=== PATIENT | female | born 1980 | race Caucasian/White ===

== ENCOUNTER → 2016-03-28 | Outpatient (CLI) | payer OTHER ==
[~2016-03-28] MED LIST: DCS100C PO; DOCU100C37 PO; HYDR-3720 PO; IBP800T PO; IBUP-1780 PO; Ibuprofen PO; LEVO50TA6 PO; MTF500T PO; OXYC-202 PO; OXYC-465 PO; PREN-46 PO
[2016-03-28 10:09] LABS: MEAN PLATELET VOLUME 10.6 FL (7.4-10.4); RED BLOOD COUNT 5.01 10^6/uL (4.35-5.85); RED CELL DISTRIBUTION WIDTH 12.2 % (10.0-14.5); WHITE BLOOD COUNT 4.7 10^3/uL (4.3-11.0)
[2016-03-28 10:28] LABS: ALANINE AMINOTRANSFERASE 17 U/L (0-55); ALBUMIN 4.5 G/DL (3.2-4.5); ANION GAP 13 MMOL/L (5-14); ASPARTATE AMINO TRANSFERASE 17 U/L (5-34); BILIRUBIN,TOTAL 0.4 MG/DL (0.1-1.0); BLOOD UREA NITROGEN 18 MG/DL (7-18); BUN/CREATININE RATIO 20; CALCIUM 9.5 MG/DL (8.5-10.1); CARBON DIOXIDE 21 MMOL/L (21-32); CHLORIDE 107 MMOL/L (98-107); CREATININE SERUM 0.88 MG/DL (0.60-1.30); GFR ESTIMATED > 60; GLUCOSE 83 MG/DL (70-105); POTASSIUM 4.3 MMOL/L (3.6-5.0); SODIUM 141 MMOL/L (135-145); TOTAL PROTEIN 7.5 G/DL (6.4-8.2)
--- NOTE | 2016-03-28 14:12 | Diagnostic Imaging Report ---
Ultrasound of the spleen. INDICATION: History of mononucleosis. Evaluate spleen size. FINDINGS: The spleen is 11 x 4.7 x 5.1 cm, normal in size. No focal lesion seen. The color Doppler at the splenic hilum demonstrates normal-appearing splenic vessels. IMPRESSION: Normal size of the spleen. Dictated by: Dictated on workstation # [id number]
== END ==
LOC: RAD 09:01
PROVIDERS: ATTEND Obstetrics & Gynecology
DX: R16.1 Splenomegaly, not elsewhere classified (principal); B27.90 Infectious mononucleosis, unspecified without complication
CPT/HCPCS: 36415; 76705; 80053; 85027

== ENCOUNTER 2016-04-01 12:30 | Outpatient (CLI) | payer OTHER ==
[~2016-04-01] VITALS: Ht 152.4 cm; Wt 83.9 kg
[~2016-04-01 12:30] MED LIST changes: -DOCU100C37 PO; -IBUP-1780 PO; -OXYC-465 PO
[2016-04-01 12:39] VITALS: BP 121/82
== END 2016-04-01 12:50 | disposition home or self-care (01) ==
LOC: PREOP 12:30
PROVIDERS: ATTEND Obstetrics & Gynecology
DX: Z01.818 Encounter for other preprocedural examination (principal); Z11.2 Encounter for screening for other bacterial diseases; N93.8 Other specified abnormal uterine and vaginal bleeding; R10.2 Pelvic and perineal pain; N39.3 Stress incontinence (female) (male); D64.9 Anemia, unspecified
CPT/HCPCS: 87081

== ENCOUNTER 2016-04-05 10:05 | Day surgery (SDC) | payer OTHER ==
[~2016-04-05] VITALS: Ht 152.4 cm; Wt 83.9 kg
--- OUTSIDE RECORDS SUMMARY | 2016-04-05 10:10 | XMS REPORT | Continuity of Care Document ---
Author Author [facility] Organization [facility] Address Unknown Phone Unavailable Care Team Providers Care Supply Chain Business Analyst Name Role Phone NO, LOCAL PHYSICIAN PCP Unavailable Insurance Providers Payer Name Policy Number Subscriber Name Relationship Enter Insurance Name [id number] Jessy Manuel 19 Self / Same As Patient Advance Directives Directive Response Recorded Date/Time Advance Directives No 04/01/16 12:40pm Health Care Power of Fire Technician No 04/01/16 12:40pm Organ Donor Yes 04/01/16 12:40pm Resuscitation Status Full Code 04/01/16 12:40pm Problems Active Problems Medical Problem Onset Date Status Right ankle sprain Unknown Acute Right ankle sprain Unknown Acute Medications Current Home Medications Medication Dose Units Route Directions Days/Qty Instructions Start Date Levothyroxine Sodium 50 Mcg 50 Mcg Oral Daily 12/07/15 Past Home Medications Medication Directions Ordered Status Metformin Hcl (Glucophage) 500 Mg Tablet, 1 Each Oral Twice A Day With Meals 11/30/13 Discontinued Vit/Fe Fumarate/Fa 1 Each Tablet, 1 Each Oral Daily 11/30/13 Discontinued [Ibuprofen] 800 Mg Tab, 800 Mg Oral Every 6 Hours 12/02/13 Discontinued Docusate Sodium 100 Mg Capsule, 1 Cap Oral Twice A Day for Constipation 12/02 Discontinued Acetaminophen/Hydrocodone Bitart ([place]) 1 Each Tablet, 1-2 Tab Oral Every 4HRS as needed for Pain 12/02/13 Discontinued Ibuprofen 800 Mg Tab, 800 Mg Oral Every 6 Hours for Pain 06/22/14 Discontinued Oxycodone Hcl/Acetaminophen 1 Each Tablet, 1-2 Tab Oral Every 4HRS as needed for Pain 12/08/15 Discontinued Social History Social History Problem Response Recorded Date/Time Alcohol Use Denies Use 06/22/2014 2:15am Recreational Drug Use No 06/22/2014 2:15am Recent Foreign Travel No 04/01/2016 12:38pm Recent Infectious Disease Exposure No 04/01/2016 12:38pm Hospitalization with Isolation Denies 11/30/2013 8:18am Sexually Transmitted Disease No 04/01/2016 12:40pm HIV/AIDS No 04/01/2016 12:40pm Smoking Status Never a Smoker 04/01/2016 12:40pm Recent Hopitalizations No 04/01/2016 12:40pm Sexually Transmitted Disease No 04/01/2016 12:40pm Hospitalization with Isolation Denies 11/30/2013 8:18am Query Response Start Date Stop Date Smoking Status Never a Smoker Hospital Discharge Instructions No hospital discharge instructions. Plan of Care Discharge Date 04/01/16 12:50pm Prescriptions See Medication Section Functional Status No functional status results. Allergies, Adverse Reactions, Alerts Allergen Type Severity Reaction Status Last Updated Iodinated Contrast Media - Oral and Allergy Unknown RASH Active 04/01/16 metronidazole ([id number]) Allergy Unknown Active 11/30/13 Immunizations No immunization records. Vital Signs Acute Vital Signs Vital Response Date/Time Pulse Rate (adult) 69 bpm (60 - 90) 04/01/2016 12:39pm O2 Sat by Pulse Oximetry 99 % (88 - 100) 04/01/2016 12:39pm Blood Pressure 121/82 mm Hg 04/01/2016 12:39pm Blood Pressure Mean 95 mm Hg 04/01/2016 12:39pm Pain Numeric Pain Scale 4 04/01/2016 12:39pm Height (Feet) 5 feet 04/01/2016 12:38pm Height (Inches) 0.00 inches 04/01/2016 12:38pm Height (Calculated Centimeters) 152.457874 cm 04/01/2016 12:38pm Weight (Pounds) 185 pounds 04/01/2016 12:38pm Weight (Ounces) 0.0 oz 04/01/2016 12:38pm Weight (Calculated Grams) 27039.59 gm 04/01/2016 12:38pm Weight (Calculated Kilograms) 83.287865 kilograms 04/01/2016 12:38pm Calculated BMI 36.1 04/01/2016 12:38pm Results Pending Laboratory Results Test Name Collection Date/Time Procedures No known history of procedures. Encounters Encounter Location Arrival/Admit Date Discharge/Depart Date Attending Provider Departed Clinic [facility] 04/01/16 12:30pm 04/01/16 12: 50pm NATALIE ONEAL MD Registered Clinic [facility] 03/28/16 9:01am NATALIE ONEAL MD
--- OUTSIDE RECORDS SUMMARY | 2016-04-05 10:12 | XMS REPORT | Continuity of Care Document ---
Author Author [facility] Organization [facility] Address Unknown Phone Unavailable Care Team Providers Care Cardiac Cath Lab Radiology Technologist Name Role Phone NO, LOCAL PHYSICIAN PCP Unavailable Insurance Providers Payer Name Policy Number Subscriber Name Relationship Enter Insurance Name [id number] Jessy Manuel 19 Self / Same As Patient Advance Directives Directive Response Recorded Date/Time Advance Directives No 04/01/16 12:40pm Health Care Power of Design Technology Professor No 04/01/16 12:40pm Organ Donor Yes 04/01/16 [...] Day for Constipation 12/02 Discontinued Acetaminophen/Hydrocodone Bitart ([place]) 1 Each Tablet, 1-2 Tab Oral Every [...] and Allergy Unknown RASH Active 04/01/16 metronidazole ([id number]) Allergy Unknown Active 11/30/13 Immunizations No immunization [...] 0.00 inches 04/01/2016 12:38pm Height (Calculated Centimeters) 152.482404 cm 04/01/2016 12:38pm Weight (Pounds) 185 pounds 04/01/2016 12:38pm Weight (Ounces) 0.0 oz 04/01/2016 12:38pm Weight (Calculated Grams) 71544.59 gm 04/01/2016 12:38pm Weight (Calculated Kilograms) 83.162705 kilograms 04/01/2016 12:38pm Calculated BMI 36.1 04/01/2016 12:38pm Results Pending Laboratory Results Test Name Collection Date/Time Procedures No known history of procedures. Encounters Encounter Location Arrival/Admit Date Discharge/Depart Date Attending Provider Departed Clinic [facility] 04/01/16 12:30pm 04/01/16 12: 50pm NATALIE ONEAL MD Registered Clinic [facility] 03/28/16 9:01am NATALIE ONEAL MD
[2016-04-05] MEDS ORDERED: ceFAZolin 1 GM/NS 50 ML IVPB IV ONE ×2 (10:15)
[2016-04-05 10:27] VITALS: BP 108/84
[2016-04-05] MEDS ORDERED: ONDANSETRON 4 MG/2 ML (SDV) Z0FRAN ONE ×2 (10:46→12:03)
[2016-04-05] MEDS ORDERED: SCOPOLAMINE 1.5 MG (TRANSDERM-SCOP) PATCH ONE (10:46)
[2016-04-05] MEDS ORDERED: FAMOTIDINE 20MG/2ML IV (PEPCID) ONE (10:46)
[2016-04-05] MEDS: LACTATED RINGERS 1,000 ML IV PRN ×2 (10:54→13:45)
[2016-04-05] MEDS ORDERED: FAMOTIDINE 20MG/2ML IV (PEPCID) IV ONE (11:00)
[2016-04-05] MEDS ORDERED: SCOPOLAMINE 1.5 MG (TRANSDERM-SCOP) PATCH TOP ONE (11:00)
[2016-04-05] MEDS ORDERED: ONDANSETRON 4 MG/2 ML (SDV) Z0FRAN IV ONE ×2 (11:00→15:30)
[2016-04-05] MEDS ORDERED: SEVOFLURANE (ULTANE) 15 ML INHAL SOLN ONE ×4 (12:03→15:03)
[2016-04-05] MEDS ORDERED: LIDOCAINE PF 2% 10 ML (XYLOCAINE) AMP ONE (12:03)
[2016-04-05] MEDS ORDERED: LACTATED RINGERS 1,000 ML IV ONE ×2 (12:03→14:45)
[2016-04-05] MEDS ORDERED: proPOfol 200 MG/20 ML (DIPRIVAN) VIAL IV ONE (12:03)
[2016-04-05] MEDS ORDERED: DEXAMETHASONE PF 10 MG/ML (DECADRON) VIAL ONE (12:03)
[2016-04-05] MEDS ORDERED: ROCURONIUM 50 MG/5 ML (ZEMURON) VIAL IV ONE (12:03)
[2016-04-05] MEDS ORDERED: fentaNYL INJECTION 250 MCG/5 ML AMP ONE (12:04)
[2016-04-05] MEDS ORDERED: MIDAZOLAM 2 MG/2 ML (VERSED) VIAL ONE (12:04)
[2016-04-05] MEDS ORDERED: BUP/EPI 0.25% 1:200,000 (MARCAINE) 30 ML VIAL ONE (12:19)
[2016-04-05] MEDS ORDERED: ESTRADIOL VAGINAL CREAM 42.5 GM (ESTRACE) VG ONE (12:28)
--- NOTE | 2016-04-05 13:13 | Progress Note-Pre Operative ---
Pre-Operative Progress Note H&P Reviewed The H&P was reviewed, patient examined and no changes noted. Date H&P Reviewed: Apr 05, 2016 Time H&P Reviewed: 13:13 Pre-Operative Diagnosis: DUB/CPP/menorrhagia/uterine prolapse/ZULLY NATALIE ONEAL MD Apr 05, 2016 1:13 pm
[2016-04-05] MEDS ORDERED: WATER (STERILE) FOR INJ 10 ML BTL INJ ONE (13:15)
[2016-04-05] MEDS ORDERED: ESTROGENS CONJ IV 25 MG/5 ML (PREMARIN) VIAL IVP ONE (13:15)
[2016-04-05] MEDS ORDERED: PROMETHAZINE INJ 25 MG/ML (PHENERGAN) AMP IM PRN (13:15)
[2016-04-05] MEDS ORDERED: MEPERIDINE (DEMEROL) INJ 100 MG/ML IM PRN (13:15)
[2016-04-05] MEDS ORDERED: BENZOCAINE/MENTHOL (DERMOPLAST) 56 ML CAN TP PRN (13:15)
[2016-04-05] MEDS ORDERED: ONDANSETRON 4 MG/2 ML (SDV) Z0FRAN IVP PRN (13:15)
--- NOTE | 2016-04-05 13:37 | Progress Note-Post Operative ---
Post-Operative Progess Note Pre-Operative Diagnosis ZULLY Post-Operative Diagnosis SAME Post-Op Procedure Note Date of Procedure: Apr 05, 2016 Name of Procedure: PVS AND CYSTOSCOPY Anesthesia Type GENERAL Estimated blood loss (mL): ELIA Kerns MD Apr 05, 2016 1:37 pm
[2016-04-05] MEDS ORDERED: GLYCOPYRROLATE 0.2 MG/ML (ROBINUL) 2 ML VIAL ONE (14:46)
[2016-04-05] MEDS ORDERED: NEOSTIGMINE (BLOXIVERZ ) 1 MG/1ML 10 ML VIAL ONE (14:46)
[2016-04-05] MEDS ORDERED: HYDROmorphone (DILAUDID) 2 MG/ML VIAL ONE (14:52)
[2016-04-05] MEDS ORDERED: morphine INJ 10 MG/ML 1ML (SYR OR VIAL) ONE (14:53)
[2016-04-05] MEDS ORDERED: WATER (STERILE) FOR INJECTION 10 ML ONE (14:53)
[2016-04-05] MEDS ORDERED: ESTROGENS CONJ IV 25 MG/5 ML (PREMARIN) VIAL ONE (14:53)
[2016-04-05] MEDS: KETOROLAC 30 MG/ML VIAL IVP SCH ×2 (15:15→21:40)
[2016-04-05] MEDS ORDERED: fentaNYL INJECTION 100 MCG/2 ML AMP IV PRN (15:30)
[2016-04-05] MEDS: morphine INJ 10 MG/ML 1ML (SYR OR VIAL) IV PRN ×3 (15:45→16:00)
[2016-04-05 16:30] VITALS: BP 132/83
[2016-04-05] MEDS: D5 LR IV SOLUTION 1,000 ML IV SCH (17:20)
[2016-04-05] MEDS: oxyCODONE/APAP 10/325MG (PERCOCET 10) TABLET PO PRN (18:27)
[2016-04-05 19:50] VITALS: BP 119/79
--- NOTE | 2016-04-05 22:51 | OPERATIVE REPORT ---
PROCEDURE PHYSICIAN: ELIA CHAIDEZ DATE OF PROCEDURE: PREOPERATIVE DIAGNOSIS (ON MY PART): Urinary incontinence. POSTOPERATIVE DIAGNOSIS: Urinary incontinence. OPERATION: Pubovaginal sling and cystoscopy. SURGEON: Dr. Chaidez. ANESTHESIA: General. COMPLICATIONS: None. PRIVATE BANKER: Dr. Paulino. PROCEDURE: After Dr. Paulino performed the first part of his surgery that he will dictate, we inserted a Fernandez catheter draining clear urine. I passed Solyx device to pass the pubovaginal sling on both sides using the described technique. The sling was holding well on both sides; however, it was kind of redundant a little bit so I passed it again on her right side in a better tight position. The sling was lying nicely under the mid urethra with no twisting, no tension and passage of a curved hemostat easily between it and the underlying tissue. I remove the Fernandez catheter, performed the cystoscopy to confirm the integrity of the bladder, ureteral orifices, urethra and no foreign body and presence of the sling at the mid urethra. I removed the cystoscope, performed Valsalva maneuver manually and it was negative. I reinserted the Fernandez catheter draining clear fluid. Estimated blood loss on my part, negligible and Dr. Paulino proceeded with the rest of his surgery that he will dictate. Job ID: [id number] Dictated Date: 04/05/2016 14:57:51 Contract Programmer Date: 04/05/2016 22:37:50 / liliana
[2016-04-05 23:55] VITALS: BP 97/56
[2016-04-06] MEDS: D5 LR IV SOLUTION 1,000 ML IV SCH (01:05)
[2016-04-06] MEDS: KETOROLAC 30 MG/ML VIAL IVP SCH (04:27)
[2016-04-06 04:30] VITALS: BP 108/58
[2016-04-06 08:40] VITALS: BP 109/76
[2016-04-06] MEDS: oxyCODONE/APAP 10/325MG (PERCOCET 10) TABLET PO PRN (08:49)
[2016-04-06] MEDS ORDERED: DOCUSATE SODIUM 100 MG (COLACE) CAP PO SCH (09:00)
[2016-04-06] MEDS ORDERED: OXYC-465 PO (09:01)
[2016-04-06] MEDS ORDERED: DOCU100C37 PO (09:01)
[2016-04-06] MEDS ORDERED: IBUP-1780 PO (09:01)
--- NOTE | 2016-04-06 09:03 | Discharge Instructions ---
Discharge Instructions Discharge Medications New, Converted or Re-Newed RX: RX on Chart Patient Instructions Patient Instructions: as directed Return to The Hospital For: as directed Activity & Diet Discharge Diet: No Restrictions Activity as Tolerated: No Orders-Post D/C & Referrals Follow Up Appt: return to clinic on Friday, April 10, 2016 at 930 a.m. for staple removal Call to make follow up appt. for patient in 4 weeks. return to clinic with Dr. Barrera per his instructions Activity: Rest for 24 hours, than as tolerated. Wound Care: May remove Band-Aid tomorrow. Replace as desired. Keep incisions clean and dry. Wash daily with soap and water. Please call in RX to patient pharmacy. Diet: As tolerated-Clear Liquids only if nauseated. Tomorrow, may shower or tub bathe as desired. No driving for 24 hours, no alcoholic beverages for 24 hours, and nothing per vagina (no tampons, douching, or intercourse) for 8 weeks. Patient to return to the clinic as soon as possible for: Temperature greater than 101F, Severe Pain, Foul discharge from incision or vagina, Excessive Bleeding (more than a period). NATALIE ONEAL MD Apr 06, 2016 9:03 am
--- NOTE | 2016-04-06 09:05 | Progress Note-Standard ---
Standard Progress Note Progress Notes/Assess & Plan Progress/Assessment & Plan this patient is without complaint. She is ambulating, tolerating by mouth well , she has good pain control. She has not voided as of yet. Vital Signs Date Time Temp Pulse Resp B/P Pulse Ox O2 Delivery O2 Flow Rate FiO2 04/06/16 04:30 98.4 92 18 108/58 98 Room Air 04/05/16 23:55 99.4 98 18 97/56 99 Room Air 04/05/16 19:50 98.9 80 18 119/79 100 Room Air 04/05/16 19:50 98.9 80 18 119/79 100 Room Air 04/05/16 16:30 97.8 93 18 132/83 95 Room Air 04/05/16 10:27 98.8 104 16 108/84 99 Room Air I & O 04/06/16 07:00 Intake Total 4365 ml Output Total 3665 ml Balance 700 ml Vital signs are stable. Patient is afebrile. Abdomen is benign. Extremities show no clubbing or cyanosis. There is no Homans sign. Assessment and plan postoperative day number 1doing well. Plan is for discharge home with follow-up in clinic. Final Diagnosis DUB/ZULLY/menorrhagia/pelvic relaxation NATALIE ONEAL MD Apr 06, 2016 9:05 am
[2016-04-06] MEDS ORDERED: IBUPROFEN 800 MG (MOTRIN) TAB PO ONE (10:02)
--- NOTE | 2016-04-06 12:36 | Anesthesia-General Post-Op ---
General Patient Condition Mental Status/LOC: Same as Preop Cardiovascular: Satisfactory Nausea/Vomiting: Absent Respiratory: Satisfactory Pain: Controlled Complications: Absent Post Op Complications Complications None Follow Up Care/Instructions Patient Instructions None needed. Anesthesia/Patient Condition Patient Condition Patient is doing well, no complaints, stable vital signs, no apparent adverse anesthesia problems. No complications reported per nursing. KE GAXIOLA CRNA Apr 06, 2016 12:36
[2016-04-06] MEDS ORDERED: IBUPROFEN 800 MG (MOTRIN) TAB PO SCH (18:00)
--- NOTE | 2016-04-08 03:46 | OPERATIVE REPORT ---
PROCEDURE PHYSICIAN: NATALIE ONEAL DATE OF PROCEDURE: 04/05/2016 DATE OF DICTATION: 04/05/2016 PREOPERATIVE DIAGNOSIS: 1. Dysfunctional uterine bleeding. 2. Chronic pelvic pain. 3. Stress urinary incontinence. 4. Uterine prolapse. POSTOPERATIVE DIAGNOSES: 1. Dysfunctional uterine bleeding. 2. Chronic pelvic pain. 3. Stress urinary incontinence. 4. Uterine prolapse. 5. Endometriosis. OPERATIVE PROCEDURE: Total laparoscopic hysterectomy with bilateral salpingectomy, left oophorectomy. Destruction of endometriosis as well as anterior and posterior vaginal repairs with enterocele repair and with Dr. Hammond performing a pubovaginal sling and cystoscopy. OPERATIVE DESCRIPTION: With the patient in supine position, under satisfactory general anesthesia, she was repositioned in dorsal lithotomy position in the [facility] and prepped and draped in usual fashion for abdominal and vaginal surgery using robotic assistance. A weighted speculum was placed in the posterior fornix of the vagina. Cervix exposed and grasped anteriorly with single-tooth tenaculum. The uterus was sounded to 13 cm of uterine sound. The cervix was then serially dilated with Andrés dilators to accommodate a uterine manipulator, which was placed and the bulb filled with 4 mL of water. The uterine manipulator using a 6 mm x 8 cm uterine probe and a 35 mm colpotomy ring. Sutures of number 1 Vicryl were placed at 3 and 9 o'clock positions of the cervix and affixed the manipulator as well. A Fernandez cath were placed in the urinary bladder and patient brought into low dorsal lithotomy position. A 12 mm incision made 4 cm superior to the umbilicus. 8 mm incisions were made 9 cm lateral to the umbilicus on each side. All 3 incision sites were infiltrated 0.25% Marcaine with epinephrine prior to incision. The supraumbilical incision was Veress needle placed through it into the abdominal cavity, correct placement was confirmed with the water drop test. The abdomen was insufflated with 2.4 liters of carbon dioxide then the Veress needle was removed and a 12 mm Optiview laparoscopic port placed. After the port was placed, the laparoscope was introduced. The abdominal wall transilluminated and 8 mm ports were placed in the 2 incisions right and left lateral. The patient was placed in Trendelenburg, allowing the bowel was spilled up out of the pelvis. The da Tara column was then advanced onto the patient and docked and operative instruments were placed in the right and left lateral ports and I retired to the da Tara console for the hysterectomy. At the console, using the vessel sealer on the right and bipolar fenestrated grasper on the left, the pelvis was first examined. There was endometriosis in the left ovarian fossae and low on the right uterosacral ligament. There were endometriosis implants that appeared to be on the left ovary. Both fallopian tubes showed evidence of tubal sterilization. The uterus was mottled in appearance consistent with adenomyosis. The laparoscope was rotated. The appendix was seen. It was a normal vermiform appendix and was well out of the pelvis. The decision was made to go ahead with the right and left salpingectomy, left oophorectomy in conjunction with the hysterectomy. Right fallopian tube was grasped and elevated. The vessel sealer was used on the mesosalpinx clamping, cauterizing and dividing stepwise across to the side of the uterus. The utero-ovarian pedicle was then treated in the same manner as was the round ligament, the broad ligament and cardinal ligaments. The same procedure was performed on the left, except that the left ovary was removed by starting stepwise across the mesovarian. The anterior lower uterine segment peritoneum was then divided using monopolar [place] in place with the vessel sealer. The bladder was dissected down off the cervix and then colpotomy incision was made at the 12 o'clock position and then continued circumferentially until the entire colpotomy ring was exposed. The uterus with the tubes and the left ovary still attached, was removed through the vagina. The vaginal cuff was then closed with running suture of V-LOC sacah suture starting from the right angle and continuing to the midportion of the cuff, insuring inclusion of the uterine vessels the right. The same was performed starting from the left with a second suture. The bladder was brought back down on the vaginal cuff with the last couple stitches. Good hemostasis was achieved. There were a couple endometriosis implants remaining in the pelvis. These were touched with electrocautery using the monopolar shear. With the endometriosis implants destroyed, with no further pathology with no bleeding, the procedure was terminated. The pelvis was copiously irrigated and examined for hemostasis. With that being complete, the procedure was terminated. The operative instruments were removed under direct vision as were the ports. The abdomen was evacuated of the insufflating gas in the process of removing the port. The skin incisions were closed with giuliana after first closing the fascia at the supraumbilical incision with [id number] suture of 2-0 Vicryl. The patient was now repositioned in the dorsal lithotomy position for anterior and posterior repairs as well as pubovaginal sling and cystoscopy. Edmond clamps were placed on the anterior vaginal wall. The vaginal wall was opened in the midline with Metzenbaum scissors. The opening was continued to approximately a centimeter and a half from the urethral meatus and up to almost apex of the vagina. The bladder was carefully dissected off the muscularis of the vagina back to pubic rami bilaterally. The bladder wall was then plicated with 2-0 Vicryl suture elevating the bladder and lengthening the urethra. At this point, Dr. Hammond assumed care of the patient I remained to assist. Dr. Hammond performed his pubovaginal sling and cystoscopy and then I resumed care of the patient. The redundant anterior vaginal wall muscularis mucosa was removed sharply. The vaginal wall was closed with running locked suture of 3-0 Vicryl Rapide. Posterior repair was then performed by placing Edmond clamps on the perineum and hymenal ring at 5 and 7 o'clock positions. An inverted triangle of skin was removed from the perineal body and an upright triangle from the posterior vaginal floor. The rectovaginal space was entered sharply and dissected bluntly to the apex of the vagina. There was a small enterocele that was reduced and then plicated with 2-0 Vicryl suture in a pursestring manner. With the enterocele obliterated, the rectovaginal space was now obliterated with additional sutures of 2-0 Vicryl and then the perineal body was restored with sutures of 2-0 Vicryl as well. Redundant posterior vaginal wall muscularis mucosa was removed sharply. The vaginal wall was closed with running suture of 3-0 Vicryl. That closure was continued past the hymenal ring down on perineal body then back up subcutaneous to the hymenal ring where the suture was tied. Digital rectal exam confirmed no stricture or stenosis of the rectum, no sutures into or through the rectal mucosa. The vagina was now filled with Estrace vaginal cream and a pack of Kerlix gauze was placed. Fernandez cath was left to dependent drainage. Sponge and needle counts were correct at the end of procedure. Estimated blood loss for procedure around 150 mL. The patient tolerated the procedure well, and was uneventfully awakened from her general anesthesia and transferred to recovery room in stable condition. Job ID: [id number] Dictated Date: 04/05/2016 15:22:43 Buckle Attaching Machine Operator Date: 04/08/2016 03:25:56 / liliana
== END 2016-04-06 12:20 | disposition home or self-care (01) ==
LOC: SDC 10:05 → WS 16:36 → SDC 04-06 12:20
PROVIDERS: ATTEND Obstetrics & Gynecology
DX: R10.2 Pelvic and perineal pain (principal); N39.3 Stress incontinence (female) (male); N93.8 Other specified abnormal uterine and vaginal bleeding; N80.1 Endometriosis of ovary; N80.3 Endometriosis of pelvic peritoneum; N81.4 Uterovaginal prolapse, unspecified; N83.8 Other noninflammatory disorders of ovary, fallopian tube and broad ligament; N83.202 Unspecified ovarian cyst, left side
CPT/HCPCS: 84703; 86850; 86900; 86901; 88307; 94664; 96361; 96375; 96376

== ENCOUNTER → 2016-09-02 | Outpatient (CLI) | payer OTHER ==
[~2016-09-02] MED LIST changes: +DOCU100C37 PO; +IBUP-1780 PO; +OXYC-465 PO
--- NOTE | 2016-09-02 09:11 | Diagnostic Imaging Report ---
PROCEDURE: US left lower extremity venous. TECHNIQUE: Multiple real-time grayscale images were obtained over the left lower extremity in various projections. Additional duplex Doppler and color Doppler images were also obtained. INDICATION: Left leg pain. EXAMINATION: Grayscale and color Doppler evaluation of the deep veins of the left lower extremity were performed with waveform analysis. FINDINGS: Continuous venous flow is present. No intraluminal filling defect is identified. There is normal compressibility and response to augmentation. No abnormal perivascular fluid collection is identified. IMPRESSION: No ultrasound evidence of left lower extremity deep venous thrombosis. Dictated by: Dictated on workstation # [id number]
== END ==
LOC: RAD 08:40
DX: R22.42 Localized swelling, mass and lump, left lower limb (principal); M79.662 Pain in left lower leg

== ENCOUNTER 2017-05-12 09:00 | Outpatient (CLI) | payer OTHER ==
[~2017-05-12] VITALS: Ht 152.4 cm; Wt 104.3 kg
[~2017-05-12 09:00] MED LIST changes: +ROPI0.25 PO
== END 2017-05-12 09:41 ==
LOC: PREOP 09:00
PROVIDERS: ATTEND Surgery
DX: Z01.818 Encounter for other preprocedural examination (principal); K43.2 Incisional hernia without obstruction or gangrene

== ENCOUNTER → 2017-05-15 | Day surgery (SDC) | payer OTHER ==
[~2017-05-15] VITALS: Ht 152.4 cm; Wt 104.3 kg
[~2017-05-15] MED LIST changes: +ACETAMINOPHEN 325 MG TABLET/CAPLET (TYLENOL) PO PRN; +BUP/EPI 0.5% 1:200,000 (SENSORCAINE) 30 ML VIAL ONE; +CATHETER FLUSH 10 ML SYR IV PRN; +DEXAMETHASONE 10 MG/ML (DECADRON) 1 ML VIAL ONE; +FAMOTIDINE 20MG/2ML IV (PEPCID) IVP ONE; +HYDR-34 PO; +HYDROcodone/APAP 5 MG/325 MG (LORTAB) TAB ONE; +HYDROcodone/APAP 5 MG/325 MG (LORTAB) TAB PO ONE; +LIDOCAINE PF 2% 5 ML (XYLOCAINE) VIAL ONE; +MEPERIDINE (DEMEROL) INJ 50 MG/ML IVP PRN; +MIDAZOLAM 2 MG/2 ML (VERSED) VIAL ONE; +NEO/POLY/BAC (NEOSPORIN) OINT 15 GM TUBE ONE; +ONDANSETRON 4 MG/2 ML (SDV) Z0FRAN IVP ONE; +ONDANSETRON 4 MG/2 ML (SDV) Z0FRAN IVP PRN; +ONDANSETRON 4 MG/2 ML (SDV) Z0FRAN ONE; +ROCURONIUM 10 MG/ML 5 ML SYRINGE IV ONE; +SCOPOLAMINE 1.5 MG (TRANSDERM-SCOP) PATCH TD ONE; +SEVOFLURANE (ULTANE) 15 ML INHAL SOLN ONE; +ceFAZolin INJECTION 1,000 MG in NS (IVPB) 100 ML IV ONE; +fentaNYL INJECTION 100 MCG/2 ML AMP IVP PRN; +fentaNYL INJECTION 100 MCG/2 ML AMP ONE; +morphine INJ 10 MG/ML 1ML (SYR OR VIAL) IVP PRN; +proPOfol 200 MG/20 ML (DIPRIVAN) VIAL IV ONE
--- OUTSIDE RECORDS SUMMARY | 2017-05-15 09:54 | XMS REPORT ---
Author RADHA Henriquez Organization [employer] Address Unknown Phone Unavailable Care Team Providers Care Rn Staffing Name Role Phone RADHA LÓPEZ CP Unavailable Allergies, Adverse Reactions, Alerts Substance Reaction Event Type Flagyl Info Not Available Drug Allergy IV Dye Info Not Available Non Drug Allergy Problems Problem Type Condition Code Onset Dates Condition Status Problem Obesity, Class III, BMI 40-49.9 (morbid obesity) E66.01 Active Assessment Depression F32.9 Active Problem Depression F32.9 Active Medications Medication Code System Code Instructions Start Date End Date Status Dosage Zoloft [facility] [address]-50 50 MG Orally Once a day Dec 27, 2014 1 tablet Procedures Procedure Coding System Code Date Office Visit, Est Pt., Level 3 CPT-4 51796 Jan 27, 2015 Vital Signs Date/Time: Jan 27, 2015 Temperature 97.7 F Weight 238.9 lbs Height 60 in BMI 46.65 Index Blood Pressure Diastolic 70 mmHg Blood Pressure Systolic 104 mmHg Cardiac Monitoring Heart Rate 72 bpm Results No Known Results Summary Purpose [employer] Submission
--- OUTSIDE RECORDS SUMMARY | 2017-05-15 09:54 | XMS REPORT ---
Author NOEMI Tse Organization [employer] Address Unknown Phone Unavailable Care Team Providers Care Machine Binder Stripper Name Role Phone NOEMI RICO CP Unavailable Allergies, Adverse Reactions, Alerts Substance Reaction Event Type Flagyl Info Not Available Drug Allergy IV Dye Info Not Available Non Drug Allergy Problems Problem Type Condition Code Onset Dates Condition Status Problem Obesity, Class III, BMI 40-49.9 (morbid obesity) E66.01 Active Assessment Dental examination Z01.20 Active Problem Depression F32.9 Active Medications No Known Medications Procedures Procedure Coding System Code Date INTRAORL-PERIAPICAL 1 FILM 04833 CPT-4 D0220 Feb 27, 2015 LTD ORAL EVALUATION - PROBLEM FOCUS CPT-4 D0140 Feb 27, 2015 Vital Signs Date/Time: Feb 27, 2015 Blood Pressure Diastolic 80 mmHg Blood Pressure Systolic 133 mmHg Height 60 in Results No Known Results Summary Purpose [employer] Submission
--- OUTSIDE RECORDS SUMMARY | 2017-05-15 09:54 | XMS REPORT ---
Author RADHA Henriquez [facility] [employer] Address Unknown Phone Unavailable Care Team Providers Care Restorer Paper And Prints Name Role Phone RADHA LÓPEZ CP Unavailable Allergies, Adverse Reactions, Alerts Substance Reaction Event Type Flagyl Info Not Available Drug Allergy IV Dye Info Not Available Non Drug Allergy Problems Problem Type Condition Code Onset Dates Condition Status Assessment Abdominal pain, left upper quadrant R10.12 Active Assessment depression F53 Active Problem Obesity, Class III, BMI 40-49.9 (morbid obesity) E66.01 Active Medications Medication Code System Code Instructions Start Date End Date Status Dosage Zoloft [facility] [address]-64 25 MG Orally Once a day Nov 18, 2014 1 tablet Procedures Procedure Coding System Code Date Office Visit, Est Pt., Level 3 CPT-4 05777 Nov 18, 2014 Vital Signs Date/Time: Nov 18, 2014 Temperature 98.4 F Weight 239.8 lbs Height 60 in BMI 46.83 Index Blood Pressure Diastolic 84 mmHg Blood Pressure Systolic 112 mmHg Cardiac Monitoring Heart Rate 80 bpm Results No Known Results Summary Purpose [employer] Submission
--- OUTSIDE RECORDS SUMMARY | 2017-05-15 09:54 | XMS REPORT ---
Author Author RADHA LÓPEZ [facility] Address [address] [place] [address] Care Team Providers Care Professional Athletes Coach Name Role Phone RADHA LÓPEZ Unavailable PROBLEMS Type Condition ICD9-CM Code QGL81-UB Code Onset Dates Condition Status SNOMED Code Problem Depression F32.9 Active 72887968 Problem Obesity, Class III, BMI 40-49.9 (morbid obesity) E66.01 Active 395652469 ALLERGIES No Information SOCIAL HISTORY Never Assessed PLAN OF CARE VITAL SIGNS MEDICATIONS Unknown Medications RESULTS No Results PROCEDURES No Known procedures IMMUNIZATIONS No Known Immunizations MEDICAL (GENERAL) HISTORY Type Description Date Medical History gestational diabetes Surgical History tonsillectomy 1991 Surgical History bladder suspension 2010 Surgical History tubal ligation 12/2013 Hospitalization History Kidney stones, [facility] 1996
--- OUTSIDE RECORDS SUMMARY | 2017-05-15 09:54 | XMS REPORT ---
Author MILLA Hutson [facility] eClinicalWorks Address Unknown Phone Unavailable Care Team Providers Care Hot Room Attendant Name Role Phone MILLA SANTOS Unavailable Allergies, Adverse Reactions, Alerts Substance Reaction Event Type Flagyl Info Not Available Drug Allergy IV Dye Info Not Available Non Drug Allergy Problems Problem Type Condition Code Onset Dates Condition Status Problem Obesity, Class III, BMI 40-49.9 (morbid obesity) E66.01 Active Assessment Dysuria R30.0 Active Problem Depression F32.9 Active Assessment Personal history of urinary (tract) infections Z87.440 Active Assessment Urinary tract infection N39.0 Active Medications Medication Code System Code Instructions Start Date End Date Status Dosage Cipro [facility] [address]-40 500 MG Orally Twice a day Apr 02, 2015 Apr 12, 2015 1 tablet Pyridium [facility] [address]-23 100 MG Orally Three times a day Apr 02, 2015 Apr 04, 2015 1 tablet after meals Procedures Procedure Coding System Code Date URINE CULTURE/COLONY COUNT CPT-4 41792 Apr 02, 2015 Office Visit, Est Pt., Level 3 CPT-4 17120 Apr 02, 2015 URINALYSIS, AUTO, W/O SCOPE CPT-4 66586 Apr 02, 2015 Vital Signs Date/Time: Apr 02, 2015 Temperature 98.0 F Weight 241.8 lbs Height 60 in BMI 47.22 Index Blood Pressure Diastolic 70 mmHg Blood Pressure Systolic 100 mmHg Cardiac Monitoring Heart Rate 120 bpm Results Name Result Date Reference Range Unit Abnormality Flag UA LONG DIP (IN HOUSE) ----ANTHONY 1+ 20150402 ----NIT negative 20150402 ----Exp date 20150402 ----Lot # [id number] ----SG 1.025 20150402 ----KET negative 20150402 ----KATHERINE negative 20150402 ----GLU negative 20150402 ----Odor strong 20150402 ----pH 5.5 20150402 ----BLO 2+ 20150402 ----URO 0.2 20150402 ----Protein trace 20150402 ----Lot # [id number] ----Exp date 20150402 ----Clarity cloudy 20150402 ----Color yellow 20150402 Summary Purpose eClinicalWorks Submission
--- OUTSIDE RECORDS SUMMARY | 2017-05-15 09:55 | XMS REPORT ---
Author ROXANA Pop [facility] eClinicalWorks Address Unknown Phone Unavailable Care Team Providers Care Box Worker Name Role Phone ROXANA MURRAY CP Unavailable Allergies No Known Allergies Problems Problem Type Condition Code Onset Dates Condition Status Problem Obesity, Class III, BMI 40-49.9 (morbid obesity) E66.01 Active Problem Depression F32.9 Active Medications No Known Medications Results No Known Results Summary Purpose eClinicalWorks Submission
--- OUTSIDE RECORDS SUMMARY | 2017-05-15 09:55 | XMS REPORT ---
Author RADHA Henriquez [facility] eClinicalWorks Address Unknown Phone Unavailable Care Team Providers Care Brush Cutter Name Role Phone RADHA LÓPEZ CP Unavailable [...] Instructions Start Date End Date Status Dosage Ibuprofen [facility] [address]-30 800 MG Orally Three times a day 1 tablet Zoloft [facility] [address]-50 50 MG Orally Once a day Dec 27, 2014 1 tablet Procedures Procedure Coding System Code Date Office Visit, Est Pt., Level 3 CPT-4 61651 Dec 27, 2014 Vital Signs Date/Time: Dec 27, 2014 Temperature 97.7 F Weight 240.9 lbs Height 60 in BMI 47.04 Index Blood Pressure Diastolic 88 mmHg Blood Pressure Systolic 120 mmHg Cardiac Monitoring Heart Rate 80 bpm Results No Known Results Summary Purpose eClinicalWorks Submission
--- NOTE | 2017-05-15 10:11 | Progress Note-Pre Operative ---
Pre-Operative Progress Note H&P Reviewed The H&P was reviewed, patient examined and no changes noted. Date Seen by Provider: May 15, 2017 Time Seen by Provider: 10:10 Date H&P Reviewed: May 15, 2017 Time H&P Reviewed: 10:10 Pre-Operative Diagnosis: ventral abdominal incisional hernia RAFAEL PANDEY MD May 15, 2017 10:10 am
[2017-05-15] MEDS: LACTATED RINGERS 1,000 ML IV PRN ×2 (10:15→13:25)
[2017-05-15 10:17] VITALS: BP 109/82
[2017-05-15 11:47] LABS: BASOPHILS % (AUTO) 1 % (0-10); EOSINOPHILS # (AUTO) 0.1 10^3/uL (0.0-0.3); EOSINOPHILS % (AUTO) 3 % (0-10); HEMATOCRIT 40 % (35-52); HEMOGLOBIN 13.7 G/DL (11.5-16.0); LYMPHOCYTES # (AUTO) 1.9 X 10^3 (1.0-4.0); LYMPHOCYTES % (AUTO) 34 % (12-44); MEAN CORPUSCULAR HEMOGLOBIN 31 PG (25-34); MEAN CORPUSCULAR HGB CONC 34 G/DL (32-36); MEAN CORPUSCULAR VOLUME 91 FL (80-99); MEAN PLATELET VOLUME 9.8 FL (7.4-10.4); MONOCYTES # (AUTO) 0.4 X 10^3 (0.0-1.0); MONOCYTES % (AUTO) 6 % (0-12); NEUTROPHILS # (AUTO) 3.2 X 10^3 (1.8-7.8); NEUTROPHILS % (AUTO) 57 % (42-75); PLATELET COUNT 326 10^3/uL (130-400); RED CELL DISTRIBUTION WIDTH 12.1 % (10.0-14.5); WHITE BLOOD COUNT 5.6 10^3/uL (4.3-11.0)
--- NOTE | 2017-05-15 14:31 | Progress Note-Post Operative ---
Post-Operative Progess Note Surgeon (s)/Land Survey Technician (s) Surgeon RAFAEL PANDEY MD Land Survey Technician: yeison ambrosio BOOTH CASHIER Pre-Operative Diagnosis ventral abdominal incisional hernia Post-Operative Diagnosis same, large lipoma(6x6cm). Procedure & Operative Findings Date of Procedure 05/15/17 Procedure Performed/Findings excision subcutaneous lipoma, open ventral abdominal incisional hernia repair with mesh. Anesthesia Type GET Estimated Blood Loss Estimated blood loss (mL): minimal Specimens/Packing Specimens Removed lipoma abdominal wall. RAFAEL PANDEY MD May 15, 2017 2:31 pm
--- NOTE | 2017-05-15 14:33 | Discharge Inst-Surgical ---
D/C Lap Instructions-DANNIE New, Converted, or Re-Newed RX: RX on Chart Follow Up Appt in 2 weeks Activity as tolerated No driving for 24 hours No driving while on pain medications Incentive Spirometry use every 2 hours while awake Regular Diet Symptoms to Report: Fever over 101 degree F, Nausea/Vomiting Infection Signs and Symptoms to report: Increased redness, Foul odor of wound, Increased drainage Bathing instructions: May shower Operative Area Clean/Dry; Keep incision clean/dry If any problems/questions: Contact your physician or go to Emergency Room RAFAEL PANDEY MD May 15, 2017 2:33 pm
[2017-05-15] MEDS: morphine INJ 10 MG/ML 1ML (SYR OR VIAL) IVP PRN ×2 (14:42→14:47)
--- NOTE | 2017-05-15 15:09 | Anesthesia-General Post-Op ---
General Patient Condition Mental Status/LOC: Same as Preop Cardiovascular: Satisfactory Nausea/Vomiting: Absent Respiratory: Satisfactory Pain: Controlled Complications: Absent Post Op Complications Complications None Follow Up Care/Instructions Patient Instructions None needed. Anesthesia/Patient Condition Patient Condition Patient is doing well, no complaints, stable vital signs, no apparent adverse anesthesia problems. GABE MARIE DO May 15, 2017 15:09
[2017-05-15 15:35] VITALS: BP 104/67
[2017-05-15 16:05] VITALS: BP 102/71
[2017-05-15 16:35] VITALS: BP 114/58
[2017-05-15 16:55] VITALS: BP 114/58
--- NOTE | 2017-05-15 19:05 | OPERATIVE REPORT ---
DATE OF SERVICE: 05/15/2017 ATTENDING PRIMARY CARE PHYSICIAN: Harry Romeo MD. PREOPERATIVE DIAGNOSIS: Symptomatic ventral abdominal incisional hernia. POSTOPERATIVE DIAGNOSES: Symptomatic ventral abdominal incisional hernia. Large lipoma within the region of the left upper abdominal quadrant, 6 x 6 cm in size. PROCEDURES PERFORMED: Repair of ventral abdominal incisional hernia, excision of subcutaneous lipoma abdominal wall. SURGEON: Rachana Pandey MD. INDUSTRIAL ANALYST: Loyd Frank APRN. ANESTHESIA: General endotracheal. ESTIMATED BLOOD LOSS: Minimal. FINDINGS: A small incisional hernia, lipoma also within the region of the hernia approximately 6 x 6 cm in size. DISPOSITION: The patient tolerated the procedure well. INDICATIONS: The patient is a 36-year-old female referred over to us for pain and swelling in the left upper abdominal quadrant. She underwent a robotic-assisted laparoscopic hysterectomy 9 months ago and then reported developing now which grew larger in size and became painful. She states over time that the lesion has grown slightly larger in size and become more painful. Upon examination, she was found to have a nonreducible lesion, which was tender to palpation and small. There was no surrounding redness or erythema. She had reported that she was otherwise eating well and having normal bowel movements. This was in the same location of a previous 8 mm port site. DESCRIPTION OF PROCEDURE: The patient was brought to the operating room, laid supine on the table. After adequate IV pain and sedating medications and general endotracheal intubation, the abdomen was prepped and draped in standard surgical fashion. Marcaine 0.5% with epinephrine was used to make a transverse skin incision. Subcutaneous tissue was then dissected down. There was organized tissue growth which was large and did have some lobulations. This was consistent with a lipoma. This was fully excised using electrocautery. We then reached the level of fascia where a small defect was noted consistent with a small incisional hernia. There was nothing within the hernia sac. This was repaired with a 6 cm coated polypropylene mesh in the fascia sutured over using 0 Prolene suture. Good hemostasis was observed. The subcutaneous tissue was then reapproximated using 4-0 Monocryl and 3-0 Vicryl interrupted sutures. Skin was closed using 4-0 Monocryl running subcuticular suture. Wound was then cleaned and covered with Dermabond. The patient tolerated the procedure well. We will recommend keeping incision clean and dry and to do no heavy lifting or exertion for the next 2 weeks and then to increase activity as tolerated. We will have followup in the office in approximately 2 weeks. Job ID: [id number] DocumentID: [id number] Dictated Date: 05/15/2017 14:43:12 Volunteer Specialist Date: 05/15/2017 19:05:00 Dictated By: RACHANA PANDEY MD
== END | disposition home or self-care (01) ==
LOC: SDC 09:49
PROVIDERS: ATTEND Surgery
DX: K43.2 Incisional hernia without obstruction or gangrene (principal); D17.1 Benign lipomatous neoplasm of skin and subcutaneous tissue of trunk; E03.9 Hypothyroidism, unspecified; G25.81 Restless legs syndrome; Z79.899 Other long term (current) drug therapy
CPT/HCPCS: 36415; 85025; 87081

== ENCOUNTER → 2017-08-15 | Outpatient (CLI) | payer OTHER ==
[~2017-08-15] MED LIST changes: -ACETAMINOPHEN 325 MG TABLET/CAPLET (TYLENOL) PO PRN; -BUP/EPI 0.5% 1:200,000 (SENSORCAINE) 30 ML VIAL ONE; -CATHETER FLUSH 10 ML SYR IV PRN; -DEXAMETHASONE 10 MG/ML (DECADRON) 1 ML VIAL ONE; -FAMOTIDINE 20MG/2ML IV (PEPCID) IVP ONE; -HYDROcodone/APAP 5 MG/325 MG (LORTAB) TAB ONE; -HYDROcodone/APAP 5 MG/325 MG (LORTAB) TAB PO ONE; -LIDOCAINE PF 2% 5 ML (XYLOCAINE) VIAL ONE; -MEPERIDINE (DEMEROL) INJ 50 MG/ML IVP PRN; -MIDAZOLAM 2 MG/2 ML (VERSED) VIAL ONE; -NEO/POLY/BAC (NEOSPORIN) OINT 15 GM TUBE ONE; -ONDANSETRON 4 MG/2 ML (SDV) Z0FRAN IVP ONE; -ONDANSETRON 4 MG/2 ML (SDV) Z0FRAN IVP PRN; -ONDANSETRON 4 MG/2 ML (SDV) Z0FRAN ONE; -ROCURONIUM 10 MG/ML 5 ML SYRINGE IV ONE; -SCOPOLAMINE 1.5 MG (TRANSDERM-SCOP) PATCH TD ONE; -SEVOFLURANE (ULTANE) 15 ML INHAL SOLN ONE; -ceFAZolin INJECTION 1,000 MG in NS (IVPB) 100 ML IV ONE; -fentaNYL INJECTION 100 MCG/2 ML AMP IVP PRN; -fentaNYL INJECTION 100 MCG/2 ML AMP ONE; -morphine INJ 10 MG/ML 1ML (SYR OR VIAL) IVP PRN; -proPOfol 200 MG/20 ML (DIPRIVAN) VIAL IV ONE
--- NOTE | 2017-08-15 18:02 | Diagnostic Imaging Report ---
INDICATION: Routine screening. No prior mammograms are available for comparison. This is a baseline study. 2-D and 3-D bilateral screening mammography was performed with CAD. The current study was also evaluated with a Computer Aided Detection (CAD) system. FINDINGS: Scattered fibronodular densities are identified bilaterally. No mass or malignant-appearing microcalcifications are seen. There are benign calcifications present. The axillae are unremarkable. IMPRESSION: No mammographic features suspicious for malignancy are identified. ACR BI-RADS Category 2: Benign findings. Result letter will be mailed to the patient. Note: At least 10% of breast cancer is not imaged by mammography. Dictated by: Dictated on workstation # [id number]
== END ==
LOC: RAD 13:27
PROVIDERS: ATTEND Obstetrics & Gynecology
DX: Z12.31 Encounter for screening mammogram for malignant neoplasm of breast (principal)
CPT/HCPCS: 77067

== ENCOUNTER → 2018-02-04 | Outpatient (CLI) | payer BC, OTHER ==
[~2018-02-04] MED LIST changes: -OXYC-202 PO; +OXYC1TAB12 PO; -ROPI0.25 PO; +ROPI0.253 PO
--- NOTE | 2018-02-04 08:57 | Diagnostic Imaging Report ---
PROCEDURE: CT abdomen and pelvis without contrast. TECHNIQUE: Multiple contiguous axial images were obtained through the abdomen and pelvis without the use of intravenous contrast. INDICATION: Status post hernia repair in April, now complaining of a knot and pain in the area of surgery in the left abdomen. COMPARISON: No prior studies are available for comparison. FINDINGS: The lung bases are clear. No discrete liver mass is identified. The gallbladder is unremarkable. No biliary duct dilatation is seen. The pancreas and spleen are unremarkable. No adrenal mass is detected. No renal calculi or hydronephrosis is identified. Aorta is nonaneurysmal. Small and large bowel loops are of normal caliber. No obstruction is seen. There is no ascites. There is a mass in the right pelvis which appears to be partially cystic measuring approximately 4 cm in size. This may represent the ovary with a cyst. Pelvic sonography would be recommended for further evaluation. Uterus appears to be surgically absent or atrophic. Bladder is unremarkable. Within the subcutaneous tissues of the left mid abdomen, appears to be a fluid collection with some internal fat globules. This area measures approximately 9.6 cm transverse x 5.1 cm AP x 4.4 cm cephalocaudal. No other fluid collections are identified. No recurrent abdominal wall hernia is identified. IMPRESSION: 1. Left abdominal wall fat and fluid collection, likely postoperative and may represent a seroma. No gas within the collection is identified. No recurrent hernia is detected. 2. Right pelvic mass, likely ovarian. Pelvic sonography would be recommended for further evaluation. Dictated by: Dictated on workstation # [id number]
== END ==
LOC: RAD 07:51
PROVIDERS: ATTEND Surgery
DX: R22.2 Localized swelling, mass and lump, trunk (principal); R10.12 Left upper quadrant pain; Z98.890 Other specified postprocedural states
CPT/HCPCS: 74176

== ENCOUNTER 2018-02-25 09:30 | Outpatient (CLI) | payer BC ==
[~2018-02-25] VITALS: Ht 152.4 cm; Wt 111.1 kg
[2018-02-27] MEDS ORDERED: ACHD5005 PO (12:32)
[2018-02-27] MEDS ORDERED: DOCU-143 PO (12:32)
== END 2018-02-25 10:48 | disposition home or self-care (01) ==
LOC: PREOP 09:30
PROVIDERS: ATTEND Surgery
DX: Z01.818 Encounter for other preprocedural examination (principal)

== ENCOUNTER 2018-02-27 08:50 | Day surgery (SDC) | payer BC ==
[~2018-02-27] VITALS: Ht 152.4 cm; Wt 111.1 kg
--- OUTSIDE RECORDS SUMMARY | 2018-02-27 08:55 | XMS REPORT ---
Author Author NOEMI RICO [facility] Address Unknown Care Team Providers Care Oven Worker Name Role Phone NOEMI RICO Unavailable PROBLEMS Type Condition ICD9-CM Code LEQ84-KI Code Onset Dates Condition Status SNOMED Code Problem Depression F32.9 Active 29438618 Problem Obesity, Class III, BMI 40-49.9 (morbid obesity) E66.01 Active 343286392 ALLERGIES Substance Reaction Event Type Date Status Flagyl Unknown Drug Allergy Dec, Active IV Dye Unknown Non Drug Allergy Dec, Active ENCOUNTERS Encounter Location Date Diagnosis [facility] [address] [id number] Dec, Caries K02.9 and Dental examination Z01.20 [facility] [address] [id number] Oct, Caries K02.9 ; Dental examination Z01.20 ; Dental plaque K03.6 and Encounter for prophylactic administration of fluoride Z29.3 [facility] [id number] [place] [id number] Sep, Dental examination Z01.20 [facility] [id number] [place] [address] Sep, [facility] [id number] [place] [phone] Jan, Acute nonintractable headache, unspecified headache type R51 and BMI 45.0-49.9, adult Z68.42 [facility] [id number] [place] [address]39[address] 5408 June, [facility] [address] [address] May, [facility] [id number] [place] [address]- 5601 29 Apr, 2015 Upper respiratory infection J06.9 [facility] [address] [address] 14 Mar, 2015 Dysuria R30.0 ; Personal history of urinary (tract) infections Z87.440 and Urinary tract infection N39.0 [facility] [address] [id number] 11 Feb, 2015 Dental examination Z01.20 [place] [address] [address] 11 Jan, 2015 Depression F32.9 [place] [address] [address] Dec, Depression F32.9 [place] [address] [address] Nov, Abdominal pain, left upper quadrant R10.12 and depression F53 [place] [address] [address] Aug, [place] [address] [address] Aug, Morbid obesity 278.01 [place] [address] [address] Aug, Routine adult health maintenance V70.0 and Obesity 278.00 [place] [address] [address] June, Ankle pain, right 719.47 ; Morbid obesity 278.01 and Dietary counseling V65.3 IMMUNIZATIONS No Known Immunizations SOCIAL HISTORY Never Assessed REASON FOR VISIT Reason: DO #19 possible pulp cap PLAN OF CARE Activity Details Follow Up prn Reason:#19-crown (when endo is completed) sje VITAL SIGNS Height 60 in 2017-12-19 Blood pressure systolic 130 mmHg 2017-12-19 Blood pressure diastolic 84 mmHg 2017-12-19 MEDICATIONS Medication Instructions Dosage Frequency Start Date End Date Duration Status Amoxicillin 500 mg Orally every 8 hrs 1 capsule 8h Dec, 7 days Active Levothyroxine Sodium 50 MCG Orally Once a day 1 tablet on an empty stomach in the morning 24h Active Ropinirole HCl 0.5 MG Orally Once a day 1 tablet 1 to 3 hours before bedtime 24h Not-Taking Zoloft 50 MG Orally Once a day 1 tablet 24h 10 Dec, 2014 Not-Taking RESULTS No Results PROCEDURES Procedure Date Ordered Result Body Site INTRAORL-PERIAPICAL 1 FILM [id number] Dec 19, 2017 Dental no charge Dec 19, 2017 Billing Notes on claim Dec 19, 2017 INSTRUCTIONS MEDICATIONS ADMINISTERED No Known Medications MEDICAL (GENERAL) HISTORY Type Description Date Medical History gestational diabetes Surgical History tonsillectomy 1991 Surgical History bladder suspension 2010 Surgical History tubal ligation 12/2013 Surgical History TVH with LSO 03/2016 Surgical History Hernia repair 04/2017 Surgical History Hysterectomy Hospitalization History Kidney stones, [facility]
--- OUTSIDE RECORDS SUMMARY | 2018-02-27 08:55 | XMS REPORT ---
Author Author FAVIONOEMI NIXON Casey [facility] Address Unknown Care Team Providers Care Bakery Helper Name Role Phone NOEMI RICO Unavailable PROBLEMS Type Condition ICD9-CM Code ZRS01-FO Code Onset Dates Condition Status SNOMED Code Problem Depression F32.9 Active 67367966 Problem Obesity, Class III, BMI 40-49.9 (morbid obesity) E66.01 Active 185948717 ALLERGIES Substance Reaction Event Type Date Status Flagyl Unknown Drug Allergy Sep, Active IV Dye Unknown Non Drug Allergy Sep, Active ENCOUNTERS Encounter Location Date Diagnosis [facility] [address] [id number] Oct, [facility] [address] [id number] Sep, Dental examination Z01.20 [place] [id number] [place] [phone] Sep, [facility] [id number] [place] [phone] Jan, Acute nonintractable headache, unspecified headache type R51 and BMI 45.0-49.9, adult Z68.42 [facility] [id number] [place] [address]88 June, [facility] [id number] [place] [address]20- 5686 May, [place] [address] [address] Apr, Upper respiratory infection J06.9 [facility] [id number] [place] [address] Mar, Dysuria R30.0 ; Personal history of urinary (tract) infections Z87.440 and Urinary tract infection N39.0 [facility] [address] [phone] 11 Feb, 2015 Dental examination Z01.20 [facility] [address] [place] [address]40- [address] 11 Jan, 2015 Depression F32.9 [place] [address] [address] 10 Dec, 2014 Depression F32.9 [place] [id number] [place] [address] 85266- 8811 02 Nov, 2014 Abdominal pain, left upper quadrant R10.12 and depression F53 [place] [id number] [place] [address] 86175- 7528 Aug, [place] [id number] [place] [address] 71771- 2550 Aug, Morbid obesity 278.01 [place] [id number] [place] [address] 68[address]- 7[address] 09 Aug, 2014 Routine adult health maintenance V70.0 and Obesity 278.00 [place] [address] [place] [address] 19745- 23[address] June, Ankle pain, right 719.47 ; Morbid obesity 278.01 and Dietary counseling V65.3 IMMUNIZATIONS No Known Immunizations SOCIAL HISTORY Never Assessed REASON FOR VISIT [place] PLAN OF CARE Activity Details Follow Up prn Reason:PAPITO VITAL SIGNS Height 60 in 2017-09-18 Blood pressure systolic 134 mmHg 2017-09-18 Blood pressure diastolic 90 mmHg 2017-09-18 MEDICATIONS Medication Instructions Dosage Frequency Start Date End Date Duration Status Zoloft 50 MG Orally Once a day 1 tablet 24h Dec, Not-Taking Levothyroxine Sodium 50 MCG Orally Once a day 1 tablet on an empty stomach in the morning 24h Active Ropinirole HCl 0.5 MG Orally Once a day 1 tablet 1 to 3 hours before bedtime 24h Not-Taking RESULTS No Results PROCEDURES Procedure Date Ordered Result Body Site LTD ORAL EVALUATION - PROBLEM FOCUS Sep 18, 2017 INTRAORL-PERIAPICAL 1 FILM 62774 Sep 18, 2017 RESIN COMPOS - 2 SURFACES POSTERIOR Sep 18, 2017 BITEWING - SINGLE FILM Sep 18, 2017 INSTRUCTIONS MEDICATIONS ADMINISTERED No Known Medications MEDICAL (GENERAL) HISTORY Type Description Date Medical History gestational diabetes Surgical History tonsillectomy 1991 Surgical History bladder suspension 2010 Surgical History tubal ligation 12/2013 Surgical History TVH with LSO 03/2016 Surgical History Hernia repair 04/2017 Surgical History Hysterectomy Hospitalization History Kidney stones, [facility] 1996
--- OUTSIDE RECORDS SUMMARY | 2018-02-27 08:55 | XMS REPORT ---
Author Author FAVIONOEMI NIXON Casey [facility] Address Unknown Care Team Providers Care General Accounting Clerk Name Role Phone NOEMI RICO Unavailable PROBLEMS Type Condition ICD9-CM Code VYV05-YN Code Onset Dates Condition Status SNOMED Code Problem Depression F32.9 Active 65842153 Problem Obesity, Class III, BMI 40-49.9 (morbid obesity) E66.01 Active 729791196 ALLERGIES No Information ENCOUNTERS Encounter Location Date Diagnosis [facility] [address] [id number] Oct, [place] [address] [id number] Sep, Dental examination Z01.20 [facility] [id number] [place] [address]67- [address]367 Sep, [facility] [address] [address] Jan, Acute nonintractable headache, unspecified headache type R51 and BMI 45.0-49.9, adult Z68.42 [place] [id number] [place] [address]236[address] 6[address] June, [facility] [address] [address] May, [facility] [address] [address] Apr, Upper respiratory infection J06.9 [facility] [id number] [place] [address] 14 Mar, 2015 Dysuria R30.0 ; Personal history of urinary (tract) infections Z87.440 and Urinary tract infection N39.0 [facility] [id number] [id number] 11 Feb, 2015 Dental examination Z01.20 [place] [address] [place] [address] 43772- [address]79 11 Jan, 2015 Depression F32.9 [place] [address] [place] [address] 35279- 9513 10 Dec, 2014 Depression F32.9 [place] [id number] [place] [address] 13681- 2758 Nov, Abdominal pain, left upper quadrant R10.12 and depression F53 [place] [id number] [place] [address]66- 7601 Aug, [place] [address] [place] [address] 63177- 7632 Aug, Morbid obesity 278.01 [place] [id number] [place] [address] 47119- 6365 09 Aug, 2014 Routine adult health maintenance V70.0 and Obesity 278.00 [place] [address] [place] [address] 31807- 2747 June, Ankle pain, right 719.47 ; Morbid obesity 278.01 and Dietary counseling V65.3 IMMUNIZATIONS No Known Immunizations SOCIAL HISTORY Never Assessed REASON FOR VISIT Triage PLAN OF CARE VITAL SIGNS MEDICATIONS Unknown Medications RESULTS No Results PROCEDURES No Known procedures INSTRUCTIONS MEDICATIONS ADMINISTERED No Known Medications MEDICAL (GENERAL) HISTORY Type Description Date Medical History gestational diabetes Surgical History tonsillectomy 1991 Surgical History bladder suspension 2010 Surgical History tubal ligation 12/2013 Surgical History TVH with LSO 03/2016 Surgical History Hernia repair 04/2017 Surgical History Hysterectomy Hospitalization History Kidney stones, [facility] 1996
--- OUTSIDE RECORDS SUMMARY | 2018-02-27 08:55 | XMS REPORT ---
Author Author JOSH DUMONT Organization [facility] Address [address] [place] [address] Care Team Providers Care Director Of Training Name Role Phone JULIAJOSH Unavailable PROBLEMS Type Condition ICD9-CM Code [id number] Code Onset Dates Condition Status SNOMED Code Problem Depression F32.9 Active 76453971 Problem Obesity, Class III, BMI 40-49.9 (morbid obesity) E66.01 Active 075417034 ALLERGIES Substance Reaction Event Type Date Status Flagyl Unknown Drug Allergy Oct, Active IV Dye Unknown Non Drug Allergy Oct, Active ENCOUNTERS Encounter Location Date Diagnosis [facility] [id number] [place] [phone] Dec, [facility] [id number] [place] [phone] Oct, Caries K02.9 ; Dental examination Z01.20 ; Dental plaque K03.6 and Encounter for prophylactic administration of fluoride Z29.3 [facility] [id number] [place] [phone] Sep, Dental examination Z01.20 [facility] [place] [id number] [place] [phone] Sep, [facility] [id number] [place] [phone] Jan, Acute nonintractable headache, unspecified headache type R51 and BMI 45.0-49.9, adult Z68.42 [facility] [place] [id number] [place] [phone] June, [facility] [place] [id number] [place] [phone] May, [facility] [place] [id number] [place] [phone] 29 Apr, 2015 Upper respiratory infection J06.9 [facility] [address] [phone] Mar, 2015 Dysuria R30.0 ; Personal history of urinary (tract) infections Z87.440 and Urinary tract infection N39.0 [facility] [address] [phone] Feb, 2015 Dental examination Z01.20 [place] [address] [phone] 11 Jan, 2015 Depression F32.9 [place] [address] [address] Dec, Depression F32.9 [place] [address] [phone] Nov, Abdominal pain, left upper quadrant R10.12 and depression F53 [place] [id number] [place] [phone] Aug, [place] [address] [phone] Aug, Morbid obesity 278.01 [place] [address] [address] Aug, Routine adult health maintenance V70.0 and Obesity 278.00 [place] [address] [address] June, Ankle pain, right 719.47 ; Morbid obesity 278.01 and Dietary counseling V65.3 IMMUNIZATIONS No Known Immunizations SOCIAL HISTORY Never Assessed REASON FOR VISIT Prophy/PAPITO PLAN OF CARE Activity Details Follow Up First Available Reason:DO #19 possible pulp cap VITAL SIGNS Height 60 in 2017-11-11 Blood pressure systolic 120 mmHg 2017-11-11 Blood pressure diastolic 82 mmHg 2017-11-11 MEDICATIONS Medication Instructions Dosage Frequency Start Date End Date Duration Status Zoloft 50 MG Orally Once a day 1 tablet 24h 10 Dec, 2014 Not-Taking Levothyroxine Sodium 50 MCG Orally Once a day 1 tablet on an empty stomach in the morning 24h Active Ropinirole HCl 0.5 MG Orally Once a day 1 tablet 1 to 3 hours before bedtime 24h Not-Taking RESULTS No Results PROCEDURES Procedure Date Ordered Result Body Site COMP ORAL EVALUATION - NEW/EST PT Nov 11, 2017 INTRAORL-PERIAPICAL 1 FILM 56130 Nov 11, 2017 TOPICAL FLUORIDE VARNISH Nov 11, 2017 PROPHYLAXIS - ADULT Nov 11, 2017 INTRAORL-PERIAPICAL EA ADD FILM Nov 11, 2017 INTRAORL-PERIAPICAL EA ADD FILM Nov 11, 2017 PANORAMIC FILM SEE ALSO CODE 88831 Nov 11, 2017 BITEWINGS - FOUR FILMS Nov 11, 2017 INSTRUCTIONS MEDICATIONS ADMINISTERED No Known Medications MEDICAL (GENERAL) HISTORY Type Description Date Medical History gestational diabetes Surgical History tonsillectomy 1991 Surgical History bladder suspension 2010 Surgical History tubal ligation 12/2013 Surgical History TVH with LSO 03/2016 Surgical History Hernia repair 04/2017 Surgical History Hysterectomy Hospitalization History Kidney stones, [facility] 1996
--- OUTSIDE RECORDS SUMMARY | 2018-02-27 08:56 | XMS REPORT | Continuity of Care Document ---
Author Author [facility] Organization [facility] Address Unknown Phone Unavailable Allergies Active Description Code Type Severity Reaction Onset Reported/Identified Relationship to Patient Clinical Status Yes IODINE MODERATE DERMATOLOGICAL - DEANNA Yes METRONIDAZOLE SEVERE OTHER Yes ivp dye ivp dye Unknown N/A 11/30/2013 Yes Iodinated Contrast Media - Oral and [id number] Drug Allergy Unknown RASH Yes Iodinated Contrast- Oral and IV Dye [id number] Drug Allergy Unknown RASH Yes metronidazole [id number] Drug Allergy Unknown N/A 02/25/2018 Medications There is no data. Problems Date Dx Coded Attending Type Code Diagnosis Diagnosed By 12/02/2013 JM DERAS, NATALIE Price Ot 648.81 ABN GLUCOSE JENNIFER-DELIV 12/02/2013 NATALIE ONEAL MD, Ot V04.82 ND FOR PROPHYLACTIC VACCIN AND INOCULATI 12/02/2013 NATALIE ONEAL MD, Ot V06.1 [id number], COMBINED [ 12/02/2013 NATALIE ONEAL MD, Ot V27.0 DELIVER-SINGLE LIVEBORN 06/22/2014 BRITTANY DEWITT DO Ot 845.00 SPRAIN OF ANKLE NOS 06/22/2014 BRITTANY DEWITT DO Ot 959.7 LOWER LEG INJURY NOS 06/22/2014 BRITTANY DEWITT DO Ot E000.8 OTHER EXTERNAL CAUSE STATUS 06/22/2014 BRITTANY DEWITT DO Ot E849.0 ACCIDENT IN HOME 06/22/2014 BRITTANY DEWITT DO Ot E927.0 OVEREXERTION FROM SUDDEN STRENUOUS MOVEM 2014 NATALIE ONEAL MD Ot 785.1 12/07/2015 NATALIE ONEAL MD, Ot N93.9 ABNORMAL UTERINE AND VAGINAL BLEEDING, U 12/07/2015 NATALIE ONEAL MD, Ot Z01.818 ENCOUNTER FOR OTHER PREPROCEDURAL EXAMIN 12/07/2015 NATALIE ONEAL MD, Ot N93.9 ABNORMAL UTERINE AND VAGINAL BLEEDING, U 12/07/2015 NATALIE ONEAL MD, Ot Z01.818 ENCOUNTER FOR OTHER PREPROCEDURAL EXAMIN 12/08/2015 NATALIE ONEAL MD, Ot N84.0 POLYP OF CORPUS UTERI 12/08/2015 NATALIE ONEAL MD, Ot N93.8 OTHER SPECIFIED ABNORMAL UTERINE AND VAG 12/11/2015 NATALIE ONEAL MD, Ot N84.0 POLYP OF CORPUS UTERI 12/11/2015 NATALIE ONEAL MD, Ot N93.8 OTHER SPECIFIED ABNORMAL UTERINE AND VAG 12/13/2015 NATALIE ONEAL MD, Ot N84.0 POLYP OF CORPUS UTERI 12/13/2015 NATALIE ONEAL MD, Ot N93.8 OTHER SPECIFIED ABNORMAL UTERINE AND VAG 12/13/2015 NATALIE ONEAL MD, Ot N84.0 POLYP OF CORPUS UTERI 12/13/2015 NATALIE ONEAL MD, Ot N93.8 OTHER SPECIFIED ABNORMAL UTERINE AND VAG 03/05/2016 NATALIE ONEAL MD Ot 785.1 PALPITATIONS 04/01/2016 NATALIE ONEAL MD, Ot B27.90 INFECTIOUS MONONUCLEOSIS, UNSPECIFIED WI 04/01/2016 NATALIE ONEAL MD Ot R16.1 SPLENOMEGALY, NOT ELSEWHERE CLASSIFIED 04/01/2016 NATALIE ONEAL MD, Ot B27.90 INFECTIOUS MONONUCLEOSIS, UNSPECIFIED WI 04/01/2016 NATALIE ONEAL MD, Ot R16.1 SPLENOMEGALY, NOT ELSEWHERE CLASSIFIED 04/01/2016 NATALIE ONEAL MD, Ot D64.9 ANEMIA, UNSPECIFIED 04/01/2016 NATALIE ONEAL MD, Ot N39.3 STRESS INCONTINENCE (FEMALE) (MALE) 04/01/2016 NATALIE ONEAL MD, Ot N93.8 OTHER SPECIFIED ABNORMAL UTERINE AND VAG 04/01/2016 NATALIE ONEAL MD, Ot R10.2 PELVIC AND PERINEAL PAIN 04/01/2016 NATALIE ONEAL MD, Ot Z01.818 ENCOUNTER FOR OTHER PREPROCEDURAL EXAMIN 04/01/2016 NATALIE ONEAL MD, Ot Z11.2 ENCOUNTER FOR SCREENING FOR OTHER BACTER 04/02/2016 NATALIE ONEAL MD, Ot D64.9 ANEMIA, UNSPECIFIED 04/02/2016 NATALIE ONEAL MD, Ot N39.3 STRESS INCONTINENCE (FEMALE) (MALE) 04/02/2016 NATALIE ONEAL MD, Ot N93.8 OTHER SPECIFIED ABNORMAL UTERINE AND VAG 04/02/2016 NATALIE ONEAL MD, Ot R10.2 PELVIC AND PERINEAL PAIN 04/02/2016 NATALIE ONEAL MD, Ot Z01.818 ENCOUNTER FOR OTHER PREPROCEDURAL EXAMIN 04/02/2016 NATALIE ONEAL MD, Ot Z11.2 ENCOUNTER FOR SCREENING FOR OTHER BACTER 04/06/2016 NATALIE ONEAL MD, Ot N39.3 STRESS INCONTINENCE (FEMALE) (MALE) 04/06/2016 NATALIE ONEAL MD Ot N80.1 ENDOMETRIOSIS OF OVARY 04/06/2016 NATALIE ONEAL MD, Ot 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.3 ENDOMETRIOSIS OF PELVIC PERITONEUM 04/06/2016 NATALIE ONEAL MD, Ot N81.4 UTEROVAGINAL PROLAPSE, UNSPECIFIED 04/06/2016 NATALIE ONEAL MD Ot N83.202 UNSPECIFIED OVARIAN CYST, LEFT SIDE 04/06/2016 NATALIE ONEAL MD, Ot N83.8 OTH NONINFLAMMATORY DISORD OF OVARY, FAL 04/06/2016 NATALIE ONEAL MD, Ot N93.8 OTHER SPECIFIED ABNORMAL UTERINE AND VAG 04/06/2016 NATALIE ONEAL MD, Ot R10.2 PELVIC AND PERINEAL PAIN 04/13/2016 NATALIE ONEAL MD, Ot N39.3 STRESS INCONTINENCE (FEMALE) (MALE) 04/13/2016 NATALIE ONEAL MD, Ot N80.1 ENDOMETRIOSIS OF OVARY 04/13/2016 NATALIE ONEAL MD, Ot N80.3 ENDOMETRIOSIS OF PELVIC PERITONEUM 04/13/2016 NATALIE ONEAL MD, Ot N81.4 UTEROVAGINAL PROLAPSE, UNSPECIFIED 04/13/2016 NATALIE ONEAL MD, Ot N83.202 UNSPECIFIED OVARIAN CYST, LEFT SIDE 04/13/2016 NATALIE ONEAL MD, Ot N83.8 OTH NONINFLAMMATORY DISORD OF OVARY, FAL 04/13/2016 NATALIE ONEAL MD, Ot N93.8 OTHER SPECIFIED ABNORMAL UTERINE AND VAG 04/13/2016 NATALIE ONEAL MD, Ot R10.2 PELVIC AND PERINEAL PAIN 04/22/2016 NATALIE ONEAL MD, Ot B27.90 INFECTIOUS MONONUCLEOSIS, UNSPECIFIED WI 04/22/2016 NATALIE ONEAL MD, Ot R16.1 SPLENOMEGALY, NOT ELSEWHERE CLASSIFIED 06/05/2016 NATALIE ONEAL MD, Ot B27.90 INFECTIOUS MONONUCLEOSIS, UNSPECIFIED WI 06/05/2016 NATALIE ONEAL MD, Ot R16.1 SPLENOMEGALY, NOT ELSEWHERE CLASSIFIED 06/18/2016 NATALIE ONEAL MD, Ot B27.90 INFECTIOUS MONONUCLEOSIS, UNSPECIFIED WI 06/18/2016 NATALIE ONEAL MD, Ot R16.1 SPLENOMEGALY, NOT ELSEWHERE CLASSIFIED 09/03/2016 ANDREIA LI MANAGER OF HOUSEKEEPING Ot M79.662 PAIN IN LEFT LOWER LEG 09/03/2016 ANDREIA LI MANAGER OF HOUSEKEEPING Ot R22.42 LOCALIZED SWELLING, MASS AND LUMP, LEFT 05/08/2017 NATALIE ONEAL MD, Ot B27.90 INFECTIOUS MONONUCLEOSIS, UNSPECIFIED WI 05/08/2017 NATALIE ONEAL MD, Ot R16.1 SPLENOMEGALY, NOT ELSEWHERE CLASSIFIED 05/09/2017 RAFAEL PANDEY MD, Ot K43.2 INCISIONAL HERNIA WITHOUT OBSTRUCTION OR 05/09/2017 RAFAEL PANDEY MD, Ot Z01.818 ENCOUNTER FOR OTHER PREPROCEDURAL EXAMIN 05/12/2017 RAFAEL PANDEY MD, Ot K43.2 INCISIONAL HERNIA WITHOUT OBSTRUCTION OR 05/12/2017 RAFAEL PANDEY MD, Ot Z01.818 ENCOUNTER FOR OTHER PREPROCEDURAL EXAMIN 05/12/2017 RAFAEL PANDEY MD, Ot K43.2 INCISIONAL HERNIA WITHOUT OBSTRUCTION OR 05/12/2017 RAFAEL PANDEY MD, Ot Z01.818 ENCOUNTER FOR OTHER PREPROCEDURAL EXAMIN 05/13/2017 RAFAEL PANDEY MD, Ot K43.2 INCISIONAL HERNIA WITHOUT OBSTRUCTION OR 05/13/2017 RAFAEL PANDEY MD, Ot Z01.818 ENCOUNTER FOR OTHER PREPROCEDURAL EXAMIN 05/15/2017 NATALIE ONEAL MD Ot B27.90 INFECTIOUS MONONUCLEOSIS, UNSPECIFIED WI 05/15/2017 NATALIE ONEAL MD, Ot R16.1 SPLENOMEGALY, NOT ELSEWHERE CLASSIFIED 05/16/2017 RAFAEL PANDEY MD, Ot D17.1 BENIGN LIPOMATOUS NEOPLASM OF SKIN, SUBC 05/16/2017 RAFAEL PANDEY MD Ot E03.9 HYPOTHYROIDISM, UNSPECIFIED 05/16/2017 RAFAEL PANDEY MD Ot G25.81 RESTLESS LEGS SYNDROME 05/16/2017 RAFAEL PANDEY MD, Ot K43.2 INCISIONAL HERNIA WITHOUT OBSTRUCTION OR 05/16/2017 RAFAEL PANDEY MD Ot Z79.899 OTHER CORRECTION (CURRENT) DRUG THERAPY 05/16/2017 RAFAEL PANDEY MD Ot D17.1 BENIGN LIPOMATOUS NEOPLASM OF SKIN, SUBC 05/16/2017 RAFAEL PANDEY MD Ot E03.9 HYPOTHYROIDISM, UNSPECIFIED 05/16/2017 RAFAEL PANDEY MD Ot G25.81 RESTLESS LEGS SYNDROME 05/16/2017 RAFAEL PANDEY MD Ot K43.2 INCISIONAL HERNIA WITHOUT OBSTRUCTION OR 05/16/2017 RAFAEL PANDEY MD Ot Z79.899 OTHER RECRUIT INSTRUCTOR (CURRENT) DRUG THERAPY 08/18/2017 NATALIE ONEAL MD Ot Z12.31 ENCNTR SCREEN MAMMOGRAM FOR MALIGNANT NE 12/29/2017 NATALIE ONEAL MD Ot 785.1 PALPITATIONS 12/29/2017 RAFAEL PANDEY MD Ot D17.1 BENIGN LIPOMATOUS NEOPLASM OF SKIN, SUBC 12/29/2017 RAFAEL PANDEY MD Ot E03.9 HYPOTHYROIDISM, UNSPECIFIED 12/29/2017 RAFAEL PANDEY MD Ot G25.81 RESTLESS LEGS SYNDROME 12/29/2017 RAFAEL PANDEY MD, Ot K43.2 INCISIONAL HERNIA WITHOUT OBSTRUCTION OR 12/29/2017 RAFAEL PANDEY MD, Ot Z79.899 OTHER RECRUIT INSTRUCTOR (CURRENT) DRUG THERAPY 01/13/2018 NATALIE ONEAL MD, Ot Z12.31 ENCNTR SCREEN MAMMOGRAM FOR MALIGNANT NE 02/02/2018 NATALIE ONEAL MD, Ot B27.90 INFECTIOUS MONONUCLEOSIS, UNSPECIFIED WI 02/02/2018 NATALIE ONEAL MD Ot R16.1 SPLENOMEGALY, NOT ELSEWHERE CLASSIFIED 02/02/2018 RAFAEL PANDEY MD Ot D17.1 BENIGN LIPOMATOUS NEOPLASM OF SKIN, SUBC 02/02/2018 RAFAEL PANDEY MD Ot E03.9 HYPOTHYROIDISM, UNSPECIFIED 02/02/2018 RAFAEL PANDEY MD Ot G25.81 RESTLESS LEGS SYNDROME 02/02/2018 RAFAEL PANDEY MD, Ot K43.2 INCISIONAL HERNIA WITHOUT OBSTRUCTION OR 02/02/2018 RAFAEL PANDEY MD Ot Z79.899 OTHER CORRECTION (CURRENT) DRUG THERAPY 02/02/2018 NATALIE ONEAL MD, Ot Z12.31 ENCNTR SCREEN MAMMOGRAM FOR MALIGNANT NE 02/03/2018 NATALIE ONEAL MD, Ot B27.90 INFECTIOUS MONONUCLEOSIS, UNSPECIFIED WI 02/03/2018 NATALIE ONEAL MD Ot R16.1 SPLENOMEGALY, NOT ELSEWHERE CLASSIFIED 02/03/2018 RAFAEL PANDEY MD Ot D17.1 BENIGN LIPOMATOUS NEOPLASM OF SKIN, SUBC 02/03/2018 RAFAEL PANDEY MD Ot E03.9 HYPOTHYROIDISM, UNSPECIFIED 02/03/2018 RAFAEL PANDEY MD Ot G25.81 RESTLESS LEGS SYNDROME 02/03/2018 RAFAEL PANDEY MD Ot K43.2 INCISIONAL HERNIA WITHOUT OBSTRUCTION OR 02/03/2018 RAFAEL PANDEY MD Ot Z79.899 OTHER CORRECTION (CURRENT) DRUG THERAPY 02/03/2018 NATALIE ONEAL MD, Ot Z12.31 ENCNTR SCREEN MAMMOGRAM FOR MALIGNANT NE 02/05/2018 ABI BUENROSTRO DO Ot R10.12 LEFT UPPER QUADRANT PAIN 02/05/2018 ABI BUENROSTRO DO Ot R22.2 LOCALIZED SWELLING, MASS AND LUMP, TRUNK 02/05/2018 BUENROSTRO ABI HOLLIDAY Ot Z98.890 OTHER SPECIFIED POSTPROCEDURAL STATES 02/20/2018 ABI BUENROSTRO DO Ot R10.12 LEFT UPPER QUADRANT PAIN 02/20/2018 BUENROSTRO DOABI Ot R22.2 LOCALIZED SWELLING, MASS AND LUMP, TRUNK 02/20/2018 BUENROSTROABI WINN DO Ot Z98.890 OTHER SPECIFIED POSTPROCEDURAL STATES Procedures Code Description Performed By Performed On 73.59 MANUAL ASSIST DELIV NEC 11/30/2013 Results Test Result Range Urine beta human chorionic gonadotropin (hCG) measurement - 12/08/15 06:20 Urine beta human chorionic gonadotropin (hCG) measurement NEGATIVE NEGATIVE Methicillin resistant Staphylococcus aureus (MRSA) screening culture - 06:20 Methicillin resistant Staphylococcus aureus (MRSA) screening culture NEG NRG Automated blood complete blood count (hemogram) panel - 03/28/16 10:05 Blood leukocytes automated count (number/volume) 4.7 10*3/uL 4.3-11.0 Blood erythrocytes automated count (number/volume) 5.01 10*6/uL 4.35-5.85 Venous blood hemoglobin measurement (mass/volume) 15.3 g/dL 11.5-16.0 Blood hematocrit (volume fraction) 45 % 35-52 Automated erythrocyte mean corpuscular volume 90 [foz_us] 80-99 Automated erythrocyte mean corpuscular hemoglobin (mass per erythrocyte) 31 pg 25-34 Automated erythrocyte mean corpuscular hemoglobin concentration measurement ( mass/volume) 34 g/dL 32-36 Automated erythrocyte distribution width ratio 12.2 % 10.0-14.5 Automated blood platelet count (count/volume) 274 10*3/uL 130-400 Automated blood platelet mean volume measurement 10.6 [foz_us] 7.4-10.4 Comprehensive metabolic panel - 03/28/16 10:05 Serum or plasma sodium measurement (moles/volume) 141 mmol/L 135-145 Serum or plasma potassium measurement (moles/volume) 4.3 mmol/L 3.6-5.0 Serum or plasma chloride measurement (moles/volume) 107 mmol/L 98-107 Carbon dioxide 21 mmol/L 21-32 Serum or plasma anion gap determination (moles/volume) 13 mmol/L 5-14 Serum or plasma urea nitrogen measurement (mass/volume) 18 mg/dL 7-18 Serum or plasma creatinine measurement (mass/volume) 0.88 mg/dL 0.60-1.30 Serum or plasma urea nitrogen/creatinine mass ratio 20 NRG Serum or plasma creatinine measurement with calculation of estimated glomerular filtration rate > NRG Serum or plasma glucose measurement (mass/volume) 83 mg/dL 70-105 Serum or plasma calcium measurement (mass/volume) 9.5 mg/dL 8.5-10.1 Serum or plasma total bilirubin measurement (mass/volume) 0.4 mg/dL 0.1-1.0 Serum or plasma alkaline phosphatase measurement (enzymatic activity/volume) 65 U/L 40-136 Serum or plasma aspartate aminotransferase measurement (enzymatic activity/ volume) 17 U/L 5-34 Serum or plasma alanine aminotransferase measurement (enzymatic activity/volume ) 17 U/L 0-55 Serum or plasma protein measurement (mass/volume) 7.5 g/dL 6.4-8.2 Serum or plasma albumin measurement (mass/volume) 4.5 g/dL 3.2-4.5 Methicillin resistant Staphylococcus aureus (MRSA) screening culture - 12:48 Methicillin resistant Staphylococcus aureus (MRSA) screening culture NEG NR Urine beta human chorionic gonadotropin (hCG) measurement - 04/05/16 10:10 Urine beta human chorionic gonadotropin (hCG) measurement NEGATIVE NEGATIVE Blood type T Indirect antibody screen panel - 04/05/16 10:51 ABO+Rh group AP NRG Transfusion band number [id number] NR Blood group antibody screen NEGATIVE NRG Methicillin resistant Staphylococcus aureus (MRSA) screening culture - 10:05 Methicillin resistant Staphylococcus aureus (MRSA) screening culture NEG NRG Complete blood count (CBC) with automated white blood cell (WBC) differential - 05/15/17 11:42 Blood leukocytes automated count (number/volume) 5.6 10*3/uL 4.3-11.0 Blood erythrocytes automated count (number/volume) 4.40 10*6/uL 4.35-5.85 Venous blood hemoglobin measurement (mass/volume) 13.7 g/dL 11.5-16.0 Blood hematocrit (volume fraction) 40 % 35-52 Automated erythrocyte mean corpuscular volume 91 [foz_us] 80-99 Automated erythrocyte mean corpuscular hemoglobin (mass per erythrocyte) 31 pg 25-34 Automated erythrocyte mean corpuscular hemoglobin concentration measurement ( mass/volume) 34 g/dL 32-36 Automated erythrocyte distribution width ratio 12.1 % 10.0-14.5 Automated blood platelet count (count/volume) 326 10*3/uL 130-400 Automated blood platelet mean volume measurement 9.8 [foz_us] 7.4-10.4 Automated blood neutrophils/100 leukocytes 57 % 42-75 Automated blood lymphocytes/100 leukocytes 34 % 12-44 Blood monocytes/100 leukocytes 6 % 0-12 Automated blood eosinophils/100 leukocytes 3 % 0-10 Automated blood basophils/100 leukocytes 1 % 0-10 Blood neutrophils automated count (number/volume) 3.2 10*3 1.8-7.8 Blood lymphocytes automated count (number/volume) 1.9 10*3 1.0-4.0 Blood monocytes automated count (number/volume) 0.4 10*3 0.0-1.0 Automated eosinophil count 0.1 10*3/uL 0.0-0.3 Automated blood basophil count (count/volume) 0.0 10*3/uL 0.0-0.1 Thyroid Stimulating Hormone - 11/11/17 11:00 TSH 1.31 mIU/mL 0.32-5.00 Encounters ACCT No. Visit Date/Time Discharge Status Pt. Type Provider Facility Loc./Unit Complaint [id number] 02/25/2018 09:30:00 02/25/2018 10:48:00 DIS Outpatient ABI BUENROSTRO DO [facility] PREOP EXCISION LIPOMA WITH APPLIC WOUND VAC [id number] 02/04/2018 07:51:00 02/04/2018 23:59:59 CLS Outpatient ABI BUENROSTRO DO [facility] RAD LUQ PAIN,MASS [id number] 08/15/2017 13:27:00 08/15/2017 23:59:59 CLS Outpatient NATALIE ONEAL MD [facility] RAD ROUTINE [id number] 05/15/2017 09:49:00 05/15/2017 23:59:59 CLS Outpatient RAFAEL PANDEY MD [facility] SDC ABDOMINAL VENTRAL INCISIONAL HERNIA [id number] 05/12/2017 09:00:00 05/12/2017 09:41:00 DIS Outpatient RAFAEL PANDEY MD [facility] PREOP ABDOMINAL VENTRAL INCISIONAL HERNIA [id number] 09/02/2016 08:40:00 09/02/2016 23:59:59 CLS Outpatient ANDREIA LI MANAGER OF HOUSEKEEPING [facility] RAD LEFT UPPER CALF PAIN X3 WEEKS [id number] 04/05/2016 10:05:00 04/06/2016 12:20:00 DIS Outpatient NATALIE ONEAL MD [facility] DUB;CPP [id number] 04/01/2016 12:30:00 04/01/2016 12:50:00 [facility] [id number] 03/28/2016 09:01:00 03/28/2016 23:59:59 CLS Outpatient NATALIE ONEAL MD [facility] RAD SPLENOMEGALY, ABD PAIN,DX WITH MONONUCLEOSIS [id number] 12/08/2015 06:02:00 12/08/2015 10:10:00 DIS Outpatient NATALIE ONEAL MD [facility] DUB [id number] 12/07/2015 05:39:00 12/07/2015 11:33:00 DIS Outpatient NATALIE ONEAL MD [facility] PREOP DUB [id number] 06/22/2014 02:08:00 06/22/2014 02:55:00 DIS Emergency ESDRAS DOBRITTANY [facility] ER RT ANKLE PAIN [id number] 11/30/2013 06:59:00 12/02/2013 14:00:00 DIS Inpatient NATALIE ONEAL MD [facility] LDRP INDUCTION [id number] 09/24/2013 12:02:00 09/24/2013 23:59:59 CLS Outpatient NATALIE ONEAL MD [facility] CARD PALPATATIONS [id number] 03/02/2018 09:06:00 PEN Preadmit ABI BUENROSTRO DO [facility] WOUNDCARE [id number] 02/27/2018 10:30:00 PEN Preadmit ABI BUENROSTRO DO [facility] LEFT UPPER QUADRANT LIPOMA [id number] 11/11/2017 12:19:00 11/11/2017 23:59:00 DIS Outpatient YOLIE ONEILL [id number] 12/13/2016 08:37:14 12/13/2016 23:59:59 CLS Outpatient [id number] 09/18/2017 16:00:00 09/18/2017 23:59:59 CLS Outpatient RADHA LÓPEZ [facility]
--- OUTSIDE RECORDS SUMMARY | 2018-02-27 08:56 | XMS REPORT ---
Author Author MARIA M GALLAGHER Organization [facility] Address [address] [place] [address] Care Team Providers Care Roll Table Operator Name Role Phone MARIA M GALLAGHER Unavailable PROBLEMS Type Condition ICD9-CM Code QOT46-FG Code Onset Dates Condition Status SNOMED Code Problem Depression F32.9 Active 41872467 Problem Obesity, Class III, BMI 40-49.9 (morbid obesity) E66.01 Active 231649953 ALLERGIES Substance Reaction Event Type Date Status Flagyl Unknown Drug Allergy Jan, Active IV Dye Unknown Non Drug Allergy Jan, Active ENCOUNTERS Encounter Location Date Diagnosis [facility] [id number] [place] [phone] Jan, Acute nonintractable headache, unspecified headache type R51 and BMI 45.0-49.9, adult Z68.42 [facility] [address] [address] June, [facility] [id number] [place] [phone] May, [facility] [address] [address] Apr, Upper respiratory infection J06.9 [facility] [id number] [place] [phone] 14 Mar, 2015 Dysuria R30.0 ; Personal history of urinary (tract) infections Z87.440 and Urinary tract infection N39.0 [facility] [id number] [place] [phone] Feb, Dental examination Z01.20 [facility] [address] [address] Jan, Depression F32.9 [address] [address], [place] [address] Dec, Depression F32.9 [address] [place] [address] [place] [phone] Nov, Abdominal pain, left upper quadrant R10.12 and depression F53 [place] [id number] [place] [phone] Aug, [place] [id number] [place] [phone] Aug, Morbid obesity 278.01 [place] [id number] [place] [phone] Aug, Routine adult health maintenance V70.0 and Obesity 278.00 [address] [place] [address] [place] [phone] June, Ankle pain, right 719.47 ; Morbid obesity 278.01 and Dietary counseling V65.3 IMMUNIZATIONS Vaccine Route Administration Date Status TORADOL (IM) 60 MG/2ML (UP TO 15 MG) IM Intramuscular Feb 14, 2017 Administered SOCIAL HISTORY Never Assessed REASON FOR VISIT Headache off and on for a week. today it has gotten worse. [email or web address] PLAN OF CARE Activity Details Follow Up prn Reason: VITAL SIGNS Height 60 in 2017-02-14 Weight 237.8 lbs 2017-02-14 Temperature 98.6 degrees Fahrenheit 2017-02-14 Heart Rate 92 bpm 2017-02-14 Respiratory Rate 20 2017-02-14 BMI 46.44 kg/m2 2017-02-14 Blood pressure systolic 118 mmHg 2017-02-14 Blood pressure diastolic 72 mmHg 2017-02-14 MEDICATIONS Medication Instructions Dosage Frequency Start Date End Date Duration Status Ropinirole HCl 0.5 MG Orally Once a day 1 tablet 1 to 3 hours before bedtime 24h Active Zoloft 50 MG Orally Once a day 1 tablet 24h Dec, Not-Taking Levothyroxine Sodium 50 MCG Orally Once a day 1 tablet on an empty stomach in the morning 24h Active RESULTS No Results PROCEDURES Procedure Date Ordered Result Body Site TORADOL (IM) 60 MG/2ML (UP TO 15 MG) Feb 14, 2017 THER/PROPH/DIAG INJ, SC/IM Feb 14, 2017 INSTRUCTIONS MEDICATIONS ADMINISTERED No Known Medications MEDICAL (GENERAL) HISTORY Type Description Date Medical History gestational diabetes Surgical History tonsillectomy 1991 Surgical History bladder suspension 2010 Surgical History tubal ligation 12/2013 Surgical History TVH with LSO 03/2016 Hospitalization History Kidney stones, [facility] 1997
[2018-02-27 09:00] VITALS: BP 113/81
[2018-02-27] MEDS ORDERED: LACTATED RINGERS 1,000 ML IV PRN (09:00)
[2018-02-27] MEDS ORDERED: ceFAZolin 2 GM IV Premixed 50 ML IV ONE (09:00)
[2018-02-27] MEDS ORDERED: BUPIVACAINE 0.5% 30 ML (SENSORCAINE) VIAL ONE (09:38)
[2018-02-27] MEDS ORDERED: LIDOCAINE 1% INJ 20 ML 20 ML VIAL ONE ×2 (09:38→10:54)
[2018-02-27] MEDS ORDERED: SCOPOLAMINE 1.5 MG (TRANSDERM-SCOP) PATCH TOP ONE (09:45)
[2018-02-27] MEDS ORDERED: FAMOTIDINE 20MG/2ML IV (PEPCID) IV ONE (09:45)
[2018-02-27] MEDS ORDERED: ONDANSETRON 4 MG/2 ML (SDV) Z0FRAN IV ONE (09:45)
[2018-02-27] MEDS ORDERED: proPOfol 200 MG/20 ML (DIPRIVAN) VIAL IV ONE (09:58)
[2018-02-27] MEDS ORDERED: LIDOCAINE PF 2% 5 ML (XYLOCAINE) VIAL ONE (09:58)
[2018-02-27] MEDS ORDERED: DEXAMETHASONE 10 MG/ML (DECADRON) 1 ML VIAL ONE (09:58)
[2018-02-27] MEDS ORDERED: MIDAZOLAM 2 MG/2 ML (VERSED) VIAL ONE (09:59)
[2018-02-27] MEDS ORDERED: fentaNYL INJECTION 100 MCG/2 ML AMP ONE ×2 (09:59→11:17)
[2018-02-27] MEDS ORDERED: ROCURONIUM 10 MG/ML 5 ML SYRINGE IV ONE (10:02)
[2018-02-27] MEDS ORDERED: SEVOFLURANE (ULTANE) 15 ML INHAL SOLN ONE ×3 (10:02→11:46)
[2018-02-27] MEDS ORDERED: FAMOTIDINE 20MG/2ML IV (PEPCID) ONE (10:04)
--- NOTE | 2018-02-27 10:36 | Progress Note-Pre Operative ---
Pre-Operative Progress Note H&P Reviewed The H&P was reviewed, patient examined and no changes noted. 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
[2018-02-27] MEDS ORDERED: ROPIVACAINE 5MG/ML 30ML VIAL ONE (11:40)
[2018-02-27] MEDS ORDERED: GLYCOPYRROLATE 0.2 MG/ML (ROBINUL) 2 ML VIAL ONE (11:44)
[2018-02-27] MEDS ORDERED: NEOSTIGMINE 1 MG/ML 5 ML SYRINGE ONE (11:44)
[2018-02-27] MEDS ORDERED: ONDANSETRON 4 MG/2 ML (SDV) Z0FRAN IVP PRN (12:15)
[2018-02-27] MEDS ORDERED: HYDROmorphone 2 MG/ML VIAL (DILAUDID) IV ONE (12:15)
--- NOTE | 2018-02-27 12:18 | Anesthesia-General Post-Op ---
General Patient Condition Mental Status/LOC: Same as Preop Cardiovascular: Satisfactory Nausea/Vomiting: Absent Respiratory: Satisfactory Pain: Controlled Complications: Absent Post Op Complications Complications None Follow Up Care/Instructions Patient Instructions None needed. Anesthesia/Patient Condition Patient Condition Patient is doing well, no complaints, stable vital signs, no apparent adverse anesthesia problems. No complications reported per nursing. FELISA MOORE CRNA Feb 27, 2018 12:18
[2018-02-27] MEDS ORDERED: DOCU-143 PO (12:32)
[2018-02-27] MEDS ORDERED: ACHD5005 PO (12:32)
--- NOTE | 2018-02-27 12:34 | Discharge Inst-Simple/Standard ---
Discharge Inst-Standard Discharge Medications New, Converted or Re-Newed RX: RX on Chart Patient Instructions/Follow Up Plan of Care/Instructions/FU: Marcio 2 weeks. Wound care clinic in hospital Friday, Friday, Friday 11:30. Activity as Tolerated: No Discharge Diet: Regular Diet Other Inst to Patient Follow up Appt: Make appointment for 2 week. Wound Care Clinic in Hospital. [facility] 11:30 Instructions: No strenuous activity. May shower in 24 hours Keeping bandages dry., no tub bath or soaking. Use incentive spirometer at home as directed. No Smoking Skin/Wound Care: Wound vac, any issues with wound vac notify physician. Symptoms to Report: Appetite Changes, Extremity Discoloration, Numbness/Tingling, Swelling Increased , Bleeding Excessive, Eyesight Changes, Pain Increased, Urine Color Change, Constipation(Persistent), Fever over 101 degree F, Pain/Pressure in chest, Urinating Difficulty, Cough Up/Vomit Blood, Heart Beat Irreg/Pounding, Pain/ Pressure in jaw, Vaginal Bleeding Increase, Cramps in feet or legs, Lightheadedness, Pain/Pressure in shoulder, Diarrhea(Persistent), Memory Changes Suddenly, Questions/Concerns, Weight gain consecutive days, Dizziness/ Fainting, Nausea/Vomiting, Shortness of Breath, Weight gain over 2 pounds If questions or concerns contact your physician Or seek help at emergency department. ABI BUENROSTRO DO Feb 27, 2018 12:34
--- NOTE | 2018-02-27 12:36 | Progress Note-Post Operative ---
Post-Operative Progess Note Surgeon (s)/Probation Supervisor (s) Surgeon ABI BUENROSTRO DO Probation Supervisor: na Pre-Operative Diagnosis lipoma and chronic seroma left upper quadrant Post-Operative Diagnosis chronic seroma with cysts in seroma cavity. Procedure & Operative Findings Date of Procedure 02/27/18 Procedure Performed/Findings excision chronic seroma 56a32t3.5cm and placement wound vac 86f25j6.5cm Anesthesia Type gen Estimated Blood Loss Estimated blood loss (mL): min Specimens/Packing Specimens Removed chronic seroma cavity and contents abdominal wall and surrounding fat. ABI BUENROSTRO DO Feb 27, 2018 12:36
[2018-02-27 13:10] VITALS: BP 139/88
[2018-02-27 13:40] VITALS: BP 124/86
[2018-02-27 14:10] VITALS: BP 114/77
[2018-02-27 15:25] VITALS: BP 114/77
--- NOTE | 2018-02-27 22:09 | OPERATIVE REPORT ---
DATE OF SERVICE: 02/27/2018 PREOPERATIVE DIAGNOSIS: Lipoma and chronic seroma, left upper quadrant. POSTOPERATIVE DIAGNOSIS: Chronic seroma with cyst in seroma cavity. PROCEDURE: Excision of chronic seroma 18 x 12 x 4.5 cm and placement of wound VAC 18 x 12 x 4.5 cm. SURGEON: Abi Buckley DO ANESTHESIA: General. ESTIMATED BLOOD LOSS: Minimal. COMPLICATIONS: None. INDICATIONS: The patient is a 37-year-old female who previously underwent excision of lipoma and hernia repair. She developed the seroma postoperatively, which had been drained repeatedly. This has been chronic in nature and the patient asked further options. She understands risks and benefits of procedure and wished to proceed with procedure. Consent was signed and on the chart. DESCRIPTION OF PROCEDURE: The patient was taken to the operating suite. She was prepped and draped in sterile fashion. Surgical pause was performed. Elliptical incision was made around the palpable subcutaneous changes and cautery used to begin to dissect circumferentially around this area. The seroma cavity was entered and a small amount of serous-appearing fluid started draining. This was suctioned and a finger was placed within the cavity and this guided in dissection around the chronic seroma cavity. This was continued to be dissected around circumferentially until completely removed. The overall cavity size was 18 x 12 x 4.5 cm. Once removed, the wound was irrigated with copious amounts of irrigation and suction. Of note, within the seroma cavity, were multiple cystic structures. The wound was then irrigated with copious amounts of irrigation. Hemostasis was achieved. At this time, a wound VAC was utilized for closure. The black foam was inserted into the abdominal wound. Once at skin level, this was secured in the usual fashion and wound VAC was attached. The patient tolerated procedure well without any complications. She was taken to recovery room in stable condition. Job ID: [id number] DocumentID: [id number] Dictated Date: 02/27/2018 12:40:25 Top Stop Attacher Date: 02/27/2018 22:08:52 Dictated By: ABI BUCKLEY DO
== END 2018-02-27 15:55 | disposition home or self-care (01) ==
LOC: SDC 08:50
PROVIDERS: ATTEND Surgery
DX: L76.33 Postprocedural seroma of skin and subcutaneous tissue following a dermatologic procedure (principal); E66.01 Morbid (severe) obesity due to excess calories; Z68.42 Body mass index [BMI] 45.0-49.9, adult; Z86.19 Personal history of other infectious and parasitic diseases; Z79.899 Other long term (current) drug therapy
CPT/HCPCS: 87081

== ENCOUNTER → 2018-03-02 | Outpatient (CLI) | payer BC ==
[~2018-03-02] MED LIST changes: +ACHD5005 PO; +DOCU-143 PO
== END ==
LOC: WOUNDCARE 11:29
PROVIDERS: ATTEND Surgery
DX: Z48.01 Encounter for change or removal of surgical wound dressing (principal)
CPT/HCPCS: 97606

== ENCOUNTER → 2018-03-04 | Outpatient (CLI) | payer BC | LOC: WOUNDCARE 11:27 | PROVIDERS: ATTEND Surgery | DX: Z48.01 Encounter for change or removal of surgical wound dressing (principal) | CPT/HCPCS: 97606 ==

== ENCOUNTER → 2018-03-06 | Outpatient (CLI) | payer BC | LOC: WOUNDCARE 10:36 | PROVIDERS: ATTEND Surgery | DX: Z48.01 Encounter for change or removal of surgical wound dressing (principal) | CPT/HCPCS: 97606 ==

== ENCOUNTER → 2018-03-09 | Outpatient (CLI) | payer BC | LOC: WOUNDCARE 11:21 | PROVIDERS: ATTEND Surgery | DX: Z48.01 Encounter for change or removal of surgical wound dressing (principal) | CPT/HCPCS: 97606 ==

== ENCOUNTER → 2018-03-13 | Outpatient (CLI) | payer BC | LOC: WOUNDCARE 10:40 | PROVIDERS: ATTEND Surgery | DX: Z48.01 Encounter for change or removal of surgical wound dressing (principal) | CPT/HCPCS: 97606 ==

== ENCOUNTER → 2018-03-16 | Outpatient (CLI) | payer BC | LOC: WOUNDCARE 11:23 | PROVIDERS: ATTEND Surgery | DX: Z48.01 Encounter for change or removal of surgical wound dressing (principal) ==

== ENCOUNTER → 2018-03-18 | Outpatient (CLI) | payer BC | LOC: WOUNDCARE 10:25 | PROVIDERS: ATTEND Surgery | DX: L76.33 Postprocedural seroma of skin and subcutaneous tissue following a dermatologic procedure (principal) | CPT/HCPCS: 97606 ==

== ENCOUNTER → 2018-03-20 | Outpatient (CLI) | payer BC | LOC: WOUNDCARE 10:43 | PROVIDERS: ATTEND Surgery | DX: L76.33 Postprocedural seroma of skin and subcutaneous tissue following a dermatologic procedure (principal) | CPT/HCPCS: 97606 ==

== ENCOUNTER → 2018-03-23 | Outpatient (CLI) | payer BC | LOC: WOUNDCARE 11:30 | PROVIDERS: ATTEND Surgery | DX: L76.33 Postprocedural seroma of skin and subcutaneous tissue following a dermatologic procedure (principal) | CPT/HCPCS: 97606 ==

== ENCOUNTER 2018-03-25 14:53 | Outpatient (CLI) | payer BC ==
[~2018-03-25] VITALS: Ht 152.4 cm; Wt 111.1 kg
== END 2018-03-25 15:18 | disposition home or self-care (01) ==
LOC: PREOP 14:53
PROVIDERS: ATTEND Surgery
DX: Z01.818 Encounter for other preprocedural examination (principal)

== ENCOUNTER 2018-03-26 06:17 | Day surgery (SDC) | payer BC ==
[~2018-03-26] VITALS: Ht 152.4 cm; Wt 111.1 kg
--- OUTSIDE RECORDS SUMMARY | 2018-03-26 06:22 | XMS REPORT | Continuity of Care Document ---
Author Author [facility] Organization [facility] Address Unknown Phone Unavailable Allergies Active Description Code Type Severity Reaction Onset Reported/Identified Relationship to Patient Clinical Status Yes IODINE MODERATE DERMATOLOGICAL - DEANNA Yes METRONIDAZOLE SEVERE OTHER Yes ivp dye ivp dye Unknown N/A 11/30/2013 Yes Iodinated Contrast Media - Oral and [id number] Drug Allergy Unknown RASH Yes Iodinated Contrast- Oral and IV Dye [id number] Drug Allergy Unknown RASH Yes metronidazole [id number] Drug Allergy Unknown N/A 02/25/2018 Medications There is no data. Problems Date Dx Coded Attending Type Code Diagnosis Diagnosed By 12/02/2013 JM DERAS, NATALIE Price Ot 648.81 ABN GLUCOSE JENNIFER-DELIV 12/02/2013 NATALIE ONEAL MD, Ot V04.82 ND FOR PROPHYLACTIC VACCIN AND INOCULATI 12/02/2013 NATALIE ONEAL MD, Ot V06.1 [id number]-[id number], COMBINED [ 12/02/2013 NATALIE ONEAL MD, Ot [...] ENCOUNTER FOR OTHER PREPROCEDURAL EXAMIN 12/07/2015 NATALIE ONAEL MD, Ot N93.9 ABNORMAL UTERINE AND VAGINAL [...] N84.0 POLYP OF CORPUS UTERI 12/13/2015 NATALIE ONAEL MD, Ot N93.8 OTHER SPECIFIED ABNORMAL UTERINE [...] Ot R10.2 PELVIC AND PERINEAL PAIN 04/22/2016 NTAALIE ONEAL MD, Ot B27.90 INFECTIOUS MONONUCLEOSIS, UNSPECIFIED [place] 04/22/2016 NATALIE ONEAL MD, Ot R16.1 SPLENOMEGALY, NOT ELSEWHERE CLASSIFIED 06/05/2016 NATALIE ONEAL MD, Ot B27.90 INFECTIOUS MONONUCLEOSIS, UNSPECIFIED WI 06/05/2016 NATALIE ONEAL MD, Ot R16.1 SPLENOMEGALY, NOT ELSEWHERE CLASSIFIED 06/18/2016 NATALIE ONEAL MD, Ot B27.90 INFECTIOUS MONONUCLEOSIS, UNSPECIFIED WI 06/18/2016 NATALIE ONEAL MD, Ot R16.1 SPLENOMEGALY, NOT ELSEWHERE CLASSIFIED 09/03/2016 ANDREIA LI DELIVERY REP Ot M79.662 PAIN IN LEFT LOWER LEG 09/03/2016 ANDREIA LI DELIVERY REP Ot R22.42 LOCALIZED SWELLING, MASS AND LUMP, [...] 05/16/2017 RAFAEL PANDEY MD Ot Z79.899 OTHER HALF-WAY (CURRENT) DRUG THERAPY 05/16/2017 RAFAEL PANDEY MD Ot D17.1 BENIGN LIPOMATOUS NEOPLASM OF SKIN, SUBC 05/16/2017 RAFAEL PANDEY MD Ot E03.9 HYPOTHYROIDISM, UNSPECIFIED 05/16/2017 ARFAEL PANDEY MD Ot G25.81 RESTLESS LEGS SYNDROME 05/16/2017 RAFAEL PANDEY MD Ot K43.2 INCISIONAL HERNIA WITHOUT OBSTRUCTION OR 05/16/2017 RAFAEL PANDEY MD Ot Z79.899 OTHER ELECTROLYSIS NEEDLE OPERATOR (CURRENT) DRUG THERAPY 08/18/2017 NATALIE ONEAL MD [...] 12/29/2017 RAFAEL PANDEY MD, Ot Z79.899 OTHER ELECTROLYSIS NEEDLE OPERATOR (CURRENT) DRUG THERAPY 01/13/2018 NATALIE ONEAL MD, [...] 02/02/2018 RAFAEL PANDEY MD Ot Z79.899 OTHER HALF-WAY (CURRENT) DRUG THERAPY 02/02/2018 NATALIE ONEAL MD, [...] 02/03/2018 RAFAEL PANDEY MD Ot Z79.899 OTHER HALF-WAY (CURRENT) DRUG THERAPY 02/03/2018 NATALIE ONEAL MD, Ot Z12.31 ENCNTR SCREEN MAMMOGRAM FOR MALIGNANT NE 02/05/2018 ABI BUENROSTRO DO Ot R10.12 LEFT UPPER QUADRANT PAIN 02/05/2018 ABI BUENROSTRO DO Ot R22.2 LOCALIZED SWELLING, MASS AND LUMP, TRUNK 02/05/2018 ABI BUENROSTRO DO Ot Z98.890 OTHER SPECIFIED POSTPROCEDURAL STATES 02/20/2018 ABI BUENROSTRO DO Ot R10.12 LEFT UPPER QUADRANT PAIN 02/20/2018 ABI BUENROSTRO DO Ot R22.2 LOCALIZED SWELLING, MASS AND LUMP, TRUNK 02/20/2018 ABI BUENROSTRO DO Ot Z98.890 OTHER SPECIFIED POSTPROCEDURAL STATES 02/25/2018 ABI BUENROSTRO DO Ot Z01.818 ENCOUNTER FOR OTHER PREPROCEDURAL EXAMIN 02/27/2018 ABI BUENROSTRO DO Ot E66.01 MORBID (SEVERE) OBESITY DUE TO EXCESS CA 02/27/2018 ABI BUENROSTRO DO Ot L76.33 POSTPROC SEROMA OF SKIN, SUBCU FOL A MICHAEL 02/27/2018 ABI BUENROSTRO DO Ot Z68.42 BODY MASS INDEX (BMI) 45.0-49.9, ADULT 02/27/2018 ABI BUENROSTRO DO Ot Z79.899 OTHER HALF-WAY (CURRENT) DRUG THERAPY 02/27/2018 ABI BUENROSTRO DO Ot Z86.19 PERSONAL HISTORY OF OTHER INFECTIOUS AND 03/03/2018 ABI BUENROSTRO DO Ot E66.01 MORBID (SEVERE) OBESITY DUE TO EXCESS CA 03/03/2018 ABI BUENROSTRO DO Ot L76.33 POSTPROC SEROMA OF SKIN, SUBCU FOL A MICHAEL 03/03/2018 ABI BUENROSTRO DO Ot Z68.42 BODY MASS INDEX (BMI) 45.0-49.9, ADULT 03/03/2018 ABI BUENROSTRO DO Ot Z79.899 OTHER ELECTROLYSIS NEEDLE OPERATOR (CURRENT) DRUG THERAPY 03/03/2018 ABI BUENROSTRO DO Ot Z86.19 PERSONAL HISTORY OF OTHER INFECTIOUS AND 03/05/2018 ABI BUENROSTRO DO Ot Z48.01 ENCOUNTER FOR CHANGE OR REMOVAL OF SURGI 03/06/2018 ABI BUENROSTRO DO Ot Z48.01 ENCOUNTER FOR CHANGE OR REMOVAL OF SURGI 03/09/2018 ABI BUENROSTRO DO Ot Z48.01 ENCOUNTER FOR CHANGE OR REMOVAL OF SURGI 03/11/2018 CHITRA HOLLIDAY ABI D Ot Z48.01 ENCOUNTER FOR CHANGE OR REMOVAL OF SURGI 03/17/2018 BUENROSTRO DOABI Ot Z48.01 ENCOUNTER FOR CHANGE OR REMOVAL OF SURGI 03/17/2018 BUENROSTRO DOABI Ot Z48.01 ENCOUNTER FOR CHANGE OR REMOVAL OF SURGI 03/19/2018 BUENROSTRO DOABI Ot L76.33 POSTPROC SEROMA OF SKIN, SUBCU FOL A MICHAEL 03/19/2018 BUENROSTRO DOABI Ot L76.33 POSTPROC SEROMA OF SKIN, SUBCU FOL A MICHAEL 03/19/2018 BUENROSTRO DOABI Ot L76.33 POSTPROC SEROMA OF SKIN, SUBCU FOL A MICHAEL 03/19/2018 BUENROSTRO DOABI Ot L76.33 POSTPROC SEROMA OF SKIN, SUBCU FOL A MICHAEL 03/19/2018 BUENROSTRO DOABI Ot L76.33 POSTPROC SEROMA OF SKIN, SUBCU FOL A MICHAEL 03/19/2018 BUENROSTRO DOABI Ot L76.33 POSTPROC SEROMA OF SKIN, SUBCU FOL A MICHAEL 03/19/2018 BUENROSTRO DOABI Ot L76.33 POSTPROC SEROMA OF SKIN, SUBCU FOL A MICHAEL 03/23/2018 BUENROSTRO DOABI Ot L76.33 POSTPROC SEROMA OF SKIN, SUBCU FOL A MICHAEL 03/25/2018 BUENROSTRO DOABI Ot L76.33 POSTPROC SEROMA OF SKIN, SUBCU FOL A MICHAEL Procedures Code Description Performed By Performed On 73.59 MANUAL ASSIST DELBELGICA NEC 11/30/2013 Results Test Result Range Urine [...] Staphylococcus aureus (MRSA) screening culture NEG NRG Urine beta human chorionic gonadotropin (hCG) measurement - 04/05/16 10:10 Urine beta human chorionic gonadotropin (hCG) measurement NEGATIVE NEGATIVE Blood type T Indirect antibody screen panel - 04/05/16 10:51 ABO+Rh group AP NRG Transfusion band number [id number] NR Blood group antibody screen NEGATIVE NR Methicillin resistant Staphylococcus aureus (MRSA) screening culture [...] - 11/11/17 11:00 TSH 1.31 mIU/mL 0.32-5.00 Methicillin resistant Staphylococcus aureus (MRSA) screening culture - 09:27 Methicillin resistant Staphylococcus aureus (MRSA) screening culture NEG NRG Encounters ACCT No. Visit Date/Time Discharge Status Pt. Type Provider Facility Loc./Unit Complaint [id number] 03/25/2018 14:53:00 03/25/2018 15:18:00 DIS Outpatient BUENROSTRO DO, ABI D [facility] PREOP EXPLORATIONS LEFT UPPER ABDOMINAL WOUND [id number] 03/20/2018 10:43:00 03/20/2018 23:59:59 CLS Outpatient BUENROSTRO DO, ABI D [facility] WOUNDCARE [id number] 03/18/2018 10:25:00 03/18/2018 23:59:59 CLS Outpatient BUENROSTRO DO, ABI D [facility] WOUND[facility] [id number] 03/16/2018 11:23:00 03/16/2018 23:59:59 CLS Outpatient BUENROSTRO DO, ABI D [facility] WOUND[facility] [id number] 03/13/2018 10:40:00 03/13/2018 23:59:59 CLS Outpatient BUENROSTRO DO, ABI D [facility] [id number] 03/09/2018 11:21:00 03/09/2018 23:59:59 CLS Outpatient BUENROSTRO DO, ABI D [facility]OUND[facility] [id number] 03/06/2018 10:36:00 03/06/2018 23:59:59 CLS Outpatient BUENROSTRO DO, ABI D [facility]OUND[facility] [id number] 03/04/2018 11:27:00 03/04/2018 23:59:59 CLS Outpatient BUENROSTRO DO, ABI D [facility] [id number] 03/02/2018 11:29:00 03/02/2018 23:59:59 CLS Outpatient BUENROSTRO DO, ABI D [facility] [id number] 02/27/2018 08:50:00 02/27/2018 15:55:00 DIS Outpatient BUENROSTRO DO, ABI D [facility] SDC LEFT UPPER QUADRANT LIPOMA [id number] 02/25/2018 09:30:00 02/25/2018 10:48:00 DIS Outpatient ABI BUENROSTRO DO [facility] PREOP EXCISION LIPOMA WITH APPLIC WOUND VAC [id number] 02/04/2018 07:51:00 02/04/2018 23:59:59 CLS Outpatient ABI BUENROSTRO DO [facility] RAD LUQ PAIN,MASS [id number] 08/15/2017 13:27:00 08/15/2017 23:59:59 CLS Outpatient NATALIE ONEAL MD [facility] RAD ROUTINE [id number] 05/15/2017 09:49:00 05/15/2017 23:59:59 CLS Outpatient RAFAEL PANDEY MD [facility] ABDOMINAL VENTRAL INCISIONAL HERNIA [id number] 05/12/2017 09:00:00 05/12/2017 09:41:00 DIS Outpatient RAFAEL PANDEY MD [facility] PREOP ABDOMINAL VENTRAL INCISIONAL HERNIA [id number] 09/02/2016 08:40:00 09/02/2016 23:59:59 CLS Outpatient ANDREIA LI APRN [facility] RAD LEFT UPPER CALF PAIN X3 WEEKS [id number] 04/05/2016 10:05:00 04/06/2016 12:20:00 DIS Outpatient NATALIE ONEAL MD [facility] DUB;CPP [id number] 04/01/2016 12:30:00 04/01/2016 12:50:00 DIS Outpatient NATALIE ONEAL MD [facility] PREOP DUB;CPP [id number] 03/28/2016 09:01:00 03/28/2016 23:59:59 CLS Outpatient NATALIE ONEAL MD [facility] RAD SPLENOMEGALY, ABD PAIN,DX WITH MONONUCLEOSIS [id number] 12/08/2015 06:02:00 12/08/2015 10:10:00 DIS Outpatient NATALIE ONEAL MD [facility] DUB [id number] 12/07/2015 05:39:00 12/07/2015 11:33:00 DIS Outpatient NATALIE ONEAL MD [facility] PREOP DUB [id number] 06/22/2014 02:08:00 06/22/2014 02:55:00 DIS Emergency BRITTANY DEWITT DO [facility] ER RT ANKLE PAIN [id number] 11/30/2013 06:59:00 12/02/2013 14:00:00 DIS Inpatient NATALIE ONEAL MD [facility] LDRP INDUCTION [id number] 09/24/2013 12:02:00 09/24/2013 23:59:59 CLS Outpatient NATALIE ONEAL MD [facility] CARD PALPATATIONS [id number] 03/26/2018 06:17:00 ACT Outpatient ABI BUENROSTRO DO [facility] SDC LEFT UPPER ABDOMINAL WOUND [id number] 03/23/2018 11:30:00 ACT Outpatient ABI BUENROSTRO DO [facility]OUND[facility] [id number] 11/11/2017 12:19:00 11/11/2017 23:59:00 DIS Outpatient YOLIE ONEILL [id number] 12/13/2016 08:37:14 12/13/2016 23:59:59 CLS Outpatient [id number] 09/18/2017 16:00:00 09/18/2017 23:59:59 CLS Outpatient RADHA LÓPEZ [facility]
[2018-03-26] MEDS ORDERED: ceFAZolin 2 GM IV Premixed 50 ML IV ONE (06:30)
[2018-03-26 06:35] VITALS: BP 128/83
[2018-03-26] MEDS ORDERED: SCOPOLAMINE 1.5 MG (TRANSDERM-SCOP) PATCH ONE (06:46)
[2018-03-26] MEDS ORDERED: ONDANSETRON 4 MG/2 ML (SDV) Z0FRAN ONE (06:46)
[2018-03-26] MEDS ORDERED: FAMOTIDINE 20MG/2ML IV (PEPCID) ONE (06:47)
[2018-03-26] MEDS ORDERED: fentaNYL INJECTION 250 MCG/5 ML AMP ONE (06:58)
[2018-03-26] MEDS ORDERED: NEOSTIGMINE 1 MG/ML 5 ML SYRINGE ONE (06:58)
[2018-03-26] MEDS ORDERED: LIDOCAINE PF 2% 5 ML (XYLOCAINE) VIAL ONE (06:58)
[2018-03-26] MEDS ORDERED: DEXAMETHASONE 10 MG/ML (DECADRON) 1 ML VIAL ONE (06:58)
[2018-03-26] MEDS ORDERED: SEVOFLURANE (ULTANE) 15 ML INHAL SOLN ONE (06:58)
[2018-03-26] MEDS ORDERED: GLYCOPYRROLATE 0.2 MG/ML (ROBINUL) 2 ML VIAL ONE (06:58)
[2018-03-26] MEDS ORDERED: MIDAZOLAM 2 MG/2 ML (VERSED) VIAL ONE (06:58)
[2018-03-26] MEDS ORDERED: ROCURONIUM 10 MG/ML 5 ML SYRINGE IV ONE (06:58)
[2018-03-26] MEDS ORDERED: proPOfol 200 MG/20 ML (DIPRIVAN) VIAL IV ONE (06:58)
[2018-03-26] MEDS ORDERED: SCOPOLAMINE 1.5 MG (TRANSDERM-SCOP) PATCH TOP ONE (07:00)
[2018-03-26] MEDS ORDERED: FAMOTIDINE 20MG/2ML IV (PEPCID) IV ONE (07:00)
[2018-03-26] MEDS ORDERED: ONDANSETRON 4 MG/2 ML (SDV) Z0FRAN IV ONE (07:00)
[2018-03-26] MEDS: LACTATED RINGERS 1,000 ML IV PRN ×2 (07:07→09:09)
[2018-03-26] MEDS ORDERED: HYDROmorphone 2 MG/ML VIAL (DILAUDID) IV ONE (09:30)
[2018-03-26] MEDS ORDERED: morphine INJ 10 MG/ML 1ML (SYR OR VIAL) IVP ONE (09:30)
[2018-03-26] MEDS ORDERED: ONDANSETRON 4 MG/2 ML (SDV) Z0FRAN IVP PRN (09:30)
--- NOTE | 2018-03-26 09:42 | Progress Note-Pre Operative ---
Pre-Operative Progress Note H&P Reviewed The H&P was reviewed, patient examined and no changes noted. Date Seen by Provider: Mar 26, 2018 Time Seen by Provider: 08:00 Date H&P Reviewed: Mar 26, 2018 Time H&P Reviewed: 08:00 Pre-Operative Diagnosis: abdominal wound ABI BUENROSTRO DO Mar 26, 2018 09:42
--- NOTE | 2018-03-26 09:43 | Progress Note-Post Operative ---
Post-Operative Progess Note Surgeon (s)/Department Secretary (s) Surgeon ABI BUENROSTRO DO Department Secretary: na Pre-Operative Diagnosis abdominal wound Post-Operative Diagnosis same Procedure & Operative Findings Date of Procedure 03/26/18 Procedure Performed/Findings exploration wound, debridement cautery and wound vac placement with wound total dimension [id number] Anesthesia Type gen Estimated Blood Loss Estimated blood loss (mL): min Specimens/Packing Specimens Removed na ABI BUENROSTRO DO Mar 26, 2018 09:43
--- NOTE | 2018-03-26 09:49 | Discharge Inst-Simple/Standard ---
Discharge Inst-Standard Patient Instructions/Follow Up Plan of Care/Instructions/FU: Keep regular appointments with wound care and Dr. Buckley Activity as Tolerated: No Discharge Diet: Regular Diet Other Inst to Patient Follow up Appt: Keep regular appointments as before. Instructions: No strenuous activity. May shower in 24 hours, no tub bath or soaking. Use incentive spirometer at home as directed. No Smoking Symptoms to Report: Appetite Changes, Extremity Discoloration, Numbness/Tingling, Swelling Increased , Bleeding Excessive, Eyesight Changes, Pain Increased, Urine Color Change, Constipation(Persistent), Fever over 101 degree F, Pain/Pressure in chest, Urinating Difficulty, Cough Up/Vomit Blood, Heart Beat Irreg/Pounding, Pain/ Pressure in jaw, Vaginal Bleeding Increase, Cramps in feet or legs, Lightheadedness, Pain/Pressure in shoulder, Diarrhea(Persistent), Memory Changes Suddenly, Questions/Concerns, Weight gain consecutive days, Dizziness/ Fainting, Nausea/Vomiting, Shortness of Breath, Weight gain over 2 pounds If questions or concerns contact your physician Or seek help at emergency department. ABI BUCKLEY DO Mar 26, 2018 09:49
[2018-03-26 10:15] VITALS: BP 119/75
[2018-03-26 10:45] VITALS: BP 132/86
--- NOTE | 2018-03-26 10:45 | NUR ---
PATIENT NOT WANTING A PAIN PILL YET. STATES, "I NEED TO GET MORE CRACKERS IN MY STOMACH BEFORE I TAKE THEM."
[2018-03-26] MEDS ORDERED: HYDROcodone/APAP 5 MG/325 MG (LORTAB) TAB PO PRN (11:00)
[2018-03-26 11:15] VITALS: BP 112/82
--- NOTE | 2018-03-26 11:16 | Anesthesia-General Post-Op ---
General Patient Condition Mental Status/LOC: Same as Preop Cardiovascular: Satisfactory Nausea/Vomiting: Absent Respiratory: Satisfactory Pain: Controlled Complications: Absent Post Op Complications Complications None Follow Up Care/Instructions Patient Instructions None needed. Anesthesia/Patient Condition Patient Condition Patient is doing well, no complaints, stable vital signs, no apparent adverse anesthesia problems. No complications reported per nursing. FELISA MOORE CRNA Mar 26, 2018 11:16
--- NOTE | 2018-03-26 11:32 | NUR ---
HYDROCODONE 5/325 MG 1 PO GIVEN FOR PAIN.
[2018-03-26 11:35] VITALS: BP 112/82
--- NOTE | 2018-03-26 14:31 | OPERATIVE REPORT ---
DATE OF SERVICE: 03/26/2018 PREOPERATIVE DIAGNOSIS: Abdominal wound. POSTOPERATIVE DIAGNOSIS: Abdominal wound. PROCEDURE: Exploration of wound debridement with cautery and wound VAC placement with wound total dimension of 20 x 6 x 6 cm. SURGEON: Abi Buckley DO. ANESTHESIA: General. ESTIMATED BLOOD LOSS: Minimal. COMPLICATIONS: None. INDICATIONS: The patient is a 37-year-old female with abdominal wound after excision of seroma. The patient has been feeling a little bit worse. There may be some purulent material down in the wound. She is having significant tenderness with wound VAC change. The patient was discussed risks and benefits of procedure and wished to proceed with procedure. Consent was signed on the chart. DESCRIPTION OF PROCEDURE: The patient was taken to the operating suite. She was prepped and draped in sterile fashion. Surgical pause was performed. Cautery was used, begin to debride abdominal wound. There was some tracking and undermining that was present, which this tissue cautery was used to excise just subcutaneous fat that had fibrosed over creating a small pocket. No purulent material within this area. The tissues that were a little bit, minimally necrotic appearing are grasped and removed with cautery, all within subcutaneous tissue layer. On the lateral aspect of the wound, there is also some fairly significant undermining the skin and subcutaneous tissue was removed with cautery making it where there was significant undermining. The wound was irrigated with copious amounts of irrigation. Hemostasis was achieved. The wound was taken all the way down to the fascia. The wound VAC foam was then cut to size and placed within the wound and wound VAC was applied filling the entire wound, which was 20 x 6 x 6 cm. The patient tolerated the procedure well without any complications. She was taken to recovery room in stable condition. Job ID: [id number] DocumentID: [id number] Dictated Date: 03/26/2018 10:05:08 Estate Planning Attorney Date: 03/26/2018 14:31:03 Dictated By: ABI BUCKLEY DO [facility]OSPITALNilson
== END 2018-03-26 11:45 | disposition home or self-care (01) ==
LOC: SDC 06:17
PROVIDERS: ATTEND Surgery
DX: L76.33 Postprocedural seroma of skin and subcutaneous tissue following a dermatologic procedure (principal); E66.01 Morbid (severe) obesity due to excess calories; Z68.42 Body mass index [BMI] 45.0-49.9, adult; Z79.899 Other long term (current) drug therapy
CPT/HCPCS: 87081

== ENCOUNTER → 2018-03-27 | Outpatient (CLI) | payer BC | LOC: WOUNDCARE 10:26 | PROVIDERS: ATTEND Surgery | DX: L76.33 Postprocedural seroma of skin and subcutaneous tissue following a dermatologic procedure (principal) | CPT/HCPCS: 97606 ==

== ENCOUNTER → 2018-03-30 | Outpatient (CLI) | payer BC | LOC: WOUNDCARE 11:23 | PROVIDERS: ATTEND Surgery | DX: L76.33 Postprocedural seroma of skin and subcutaneous tissue following a dermatologic procedure (principal) ==

== ENCOUNTER → 2018-04-01 | Outpatient (CLI) | payer BC | LOC: WOUNDCARE 11:25 | PROVIDERS: ATTEND Surgery | DX: L76.33 Postprocedural seroma of skin and subcutaneous tissue following a dermatologic procedure (principal) | CPT/HCPCS: 97606 ==

== ENCOUNTER → 2018-04-03 | Outpatient (CLI) | payer BC | LOC: WOUNDCARE 08:38 | PROVIDERS: ATTEND Surgery | DX: L76.33 Postprocedural seroma of skin and subcutaneous tissue following a dermatologic procedure (principal) | CPT/HCPCS: 97606 ==

== ENCOUNTER → 2019-07-23 | Outpatient (CLI) | payer BC, OTHER ==
--- NOTE | 2019-07-23 16:48 | Diagnostic Imaging Report ---
INDICATION: Left lateral thigh pain. FINDINGS: Sonographic surveillance revealed no solid or cystic mass. No fluid collection. No abnormality revealed at ultrasound. If there is a suspicious palpable lesion requiring further workup, would recommend MRI through the affected area as the ultrasound was normal. IMPRESSION: Normal soft tissue ultrasound. Dictated by: Dictated on workstation # [id number]
== END ==
LOC: RAD 13:17
PROVIDERS: ATTEND Family Medicine
DX: M79.652 Pain in left thigh (principal)
CPT/HCPCS: 76881

== ENCOUNTER → 2021-07-26 | Outpatient (CLI) | payer BC, OTHER ==
[~2021-07-26] MED LIST changes: -OXYC-465 PO; +OXYC-556 PO
--- NOTE | 2021-07-26 13:16 | Diagnostic Imaging Report ---
INDICATION: Routine screening. COMPARISON: 08/15/2017. TECHNIQUE: 2D and 3D bilateral screening mammography was performed with CAD. FINDINGS: Scattered fibroglandular densities are identified bilaterally. No spiculated mass or malignant-appearing microcalcifications are seen. The axillae are unremarkable. IMPRESSION: No mammographic features suspicious for malignancy are identified. ACR BI-RADS Category 1: Negative. Result letter will be mailed to the patient. Note: At least 10% of breast cancer is not imaged by mammography. Dictated by: Dictated on workstation # [id number]
== END ==
LOC: RAD 10:45
PROVIDERS: ATTEND Family Medicine
DX: Z12.31 Encounter for screening mammogram for malignant neoplasm of breast (principal)
CPT/HCPCS: 77063; 77067

== ENCOUNTER → 2022-11-19 | Outpatient (CLI) | payer OTHER ==
[~2022-11-19] MED LIST changes: -ROPI0.253 PO; +ROPI0.2533 PO; +RT-ALBUTEROL SULF 2.5 MG/3 ML PRE-MIX VIAL INH ONE
== END ==
LOC: RT 14:15
PROVIDERS: ATTEND Nurse Practitioner Family
DX: R05.3 Chronic cough (principal)
CPT/HCPCS: 94060; 94726; 94729